=== PATIENT | male | born 1965 | race Caucasian/White ===

== ENCOUNTER 2022-06-22 20:19 | Emergency (ER) | payer OTHER, SELFPAY ==
[2022-06-22 20:40] VITALS: BP 109/79; PULSE 66; RESP 14; TEMP 36.4; O2SAT 95; BMI 45.6
--- NOTE | 2022-06-22 21:03 | CRLHL7_ITS ---
For Patients: As a result of the Century Cures Act, medical imaging exams and procedure reports are released immediately into your electronic medical record. You may view this report before your referring provider. If you have questions, please contact your health care provider. INDICATION: Fall, head injury TECHNIQUE: CT Head without i.v. contrast. Coronal and sagittal reformats were obtained. COMPARISON: None FINDINGS: CSF space: The ventricles are normal for age. Brain: No evidence of mass, acute infarction or hemorrhage is seen. No mass-effect or midline shift is seen. The brain parenchyma is otherwise normal in appearance with preservation of the france-white matter junction. Calvarium: The visualized paranasal sinuses are well aerated. The mastoid air cells are clear. The visualized orbits are grossly unremarkable. The calvarium is unremarkable in appearance with no fractures identified. IMPRESSION: 1. No evidence of acute infarction, intracranial hemorrhage, or mass-effect seen. Please note that all CT scans at this facility use dose modulation, iterative reconstruction, and/or weight-based dosing when appropriate to reduce radiation dose to as low as reasonably achievable. Dictated by: Broderick Groves MD @ 06/22/2022 21:25:40 (Electronically Signed)
--- NOTE | 2022-06-22 21:04 | CRLHL7_ITS ---
For Patients: As a result of the Cures Act, medical imaging exams and procedure reports are released immediately into your electronic medical record. You may view this report before your referring provider. If you have questions, please contact your health care provider. INDICATION: Fall, neck injury TECHNIQUE: CT cervical spine without i.v. contrast. Coronal and sagittal reformats were obtained. COMPARISON: None FINDINGS: Alignment: Unremarkable. Bone: No acute fractures or aggressive bone lesions are identified. On image 99, series 5 there is a linear lucency along the left transverse process. This may represent a nutrient vessel as it is only seen on 1 image. Disc: Moderate degenerative disc disease is present from C3-4 through C6-7. The facet joints are unremarkable. Soft tissue: The prevertebral soft tissues are unremarkable in appearance. The visualized lung apices and mediastinum are unremarkable. IMPRESSION: 1. No acute osseous injuries are identified. Dictated by Broderick Groves MD @ 06/22/2022 9:28:52 PM Please note that all CT scans at this facility use dose modulation, iterative reconstruction, and/or weight-based dosing when appropriate to reduce radiation dose to as low as reasonably achievable. Dictated by: Broderick Groves MD @ 06/22/2022 21:28:56 (Electronically Signed)
--- NOTE | 2022-06-22 21:11 | ED.HEATRA ---
HPI - Head Injury General Chief complaint: Head Injury/Pain Stated complaint: INR 4.0, fell and hit head & back yesterday Time Seen by Provider: 06/22/22 20:48 History of Present Illness HPI Narrative: Pt is a 56 year old gentleman who takes coumadin for a history of atrial fibrillation as well as DVT who fell approximately 36 hours ago on the ice. Pt fell backwards striking the back of his head on the cement. He was able to get up without difficulty. Pt has had no neurological symptoms but dose have mild pain in the occiput as well as the midline of the neck. Pt has no numbness, weakness, fevers, chills, vomiting or other headache. Pt had his INR done today and found that it was 4.0. Pt's coumadin was adjusted by his PCP but was asked to come in the have imaging of his head and neck due to the injury in the setting of anticoagulation. Related Data Home Medications Medication Instructions Recorded Confirmed atorvastatin 40 mg tablet mg 06/22/22 blood-glucose sensor ([employer] G6 06/22/22 06/22/22 Sensor device) blood-glucose transmitter ([employer] 06/22/22 06/22/22 G6 Transmitter device) empagliflozin 10 mg tablet mg 06/22/22 (Jardiance) escitalopram oxalate 20 mg tablet mg 06/22/22 gabapentin 100 mg capsule mg 06/22/22 glimepiride 4 mg tablet mg 06/22/22 insulin glargine 100 unit/mL (3 unit subcut 06/22/22 mL) subcutaneous pen (Lantus Solostar U-100 Insulin) lisinopril 20 mg tablet mg 06/22/22 metoprolol succinate 25 mg mg PO 06/22/22 tablet,extended release 24 hr pen needle, diabetic 32 gauge x 06/22/22 06/22/2206/13 (Unifine Pentips) pioglitazone 45 mg tablet mg 06/22/22 warfarin 5 mg tablet mg 06/22/22 Allergies Allergy/AdvReac Type Severity Reaction Status Date / Time No Known Drug Allergies Allergy Verified 06/22/22 20:48 Review of Systems Status of ROS: Reports: 10 or more systems reviewed and unremarkable except as noted in History and below [facility] Medical History (Updated 06/22/22 @ 21:44 by Nicholas Butler MD) Atrial fibrillation COVID-19 Diabetes DVT (deep venous thrombosis) Hyperlipidemia Hypertension [place] (obstructive sleep apnea) Social History Smoking Status: Never smoker Do you use any of these nicotine containing products: None Second hand tobacco smoke exposure: No How often do you have a drink containing alcohol: never AUDIT-C Alcohol total score: 0 Non-prescribed substance use: denies use Exam Narrative: Exam Narrative: EXAM GENERAL: Patient appears comfortable and well. No signs of trauma in head or neck. EYES: No scleral icterus. LYMPH: No supraclavicular or cervical lymphadenopathy. SKIN: Visible skin seen during exam normal or with benign process only. EXT: No dependent lower extremity pedal edema. HEART: Regular rate and rhythm with no murmurs, rubs, or gallops. LUNGS: Clear to auscultation bilaterally with no crackles or wheezes. ABD: Soft, non tender, non distended. PSYCH: Good eye contact, speech is not pressured. Const: Vital Signs, click to edit/add: Vital Signs - 24 hr 06/22/22 20:40 Temperature 97.5 F L Pulse Rate [Pulse Oximeter] 66 Respiratory Rate 14 Blood Pressure [Ri ght Upper Arm] 109/79 Pulse Oximetry 95 Oxygen Delivery Me thod Room Air Course Course Hospital Course: CT of the head and neck ordered. Pt appears stable with no abnormalities on exam. Reevaluation(s) Reevaluation #1: CT of head and cervical spine negative for acute injuries. Vital Signs Vital signs: Initial Vital Signs Temperature 97.5 F L 06/22/22 20:40 Temperature Source Temporal Artery Scan 06/22/22 20:40 Pulse Rate 66 06/22/22 20:40 Respiratory Rate 14 06/22/22 20:40 Blood Pressure 109/79 06/22/22 20:40 Blood Pressure Mean 89 06/22/22 20:40 Blood Pressure Position Sitting 06/22/22 20:40 Pulse Oximetry 95 06/22/22 20:40 Oxygen Delivery Method 06/22/22 20:40 Vital Signs Temperature 97.5 F L 06/22/22 20:40 Pulse Rate 66 06/22/22 20:40 Respiratory Rate 14 06/22/22 20:40 Blood Pressure 109/79 06/22/22 20:40 Pulse Oximetry 95 06/22/22 20:40 Oxygen Delivery Method 06/22/22 20:40 Temperature 97.5 F L 06/22/22 20:40 Pulse Rate 66 06/22/22 20:40 Respiratory Rate 14 06/22/22 20:40 Blood Pressure 109/79 06/22/22 20:40 Pulse Oximetry 95 06/22/22 20:40 Oxygen Delivery Method 06/22/22 20:40 MDM - Head Injury MDM Narrative Medical decision making narrative: Pt with a mildly elevated INR of 4.0 fell 36 hours ago striking his head and neck. Pt presents with no neurological symptoms and only mild local symptoms from the contusion. Pt has negative CT of the head and cervical spine. Pt' coumadin adjusted by PCP. Pt treated and released with symptomatic care and outpt follow up. Differential Diagnosis Differential diagnosis: Likely concussion without loss of consciousness, epidural hematoma, closed head injury, subarachnoid hematoma, postconcussion syndrome, subdural hematoma and concussion with loss of consciousness Discharge Plan Discharge Clinical Impression: Closed head injury Condition: Stable Instructions: Head Injury (ED) Additional Instructions: Tyelnol Ice Coumadin adjustment per PCP Continue current medications as prescribed Activity Level: No Restrictions Discharge Diet: Regular Prescriptions: No Action atorvastatin 40 mg tablet Label Comments: TAKE 1 TABLET (40 MG) BY MOUTH ONCE DAILY. FOR CHOLESTEROL (DME) Dexcom G6 Sensor Device MISCELLANEOUS Label Comments: TO BE USED TO READ BLOOD SUGARS, FOLLOW UTILITY SPECIALIST DIRECTIONS. (DME) Dexcom G6 Transmitter Device MISCELLANEOUS Label Comments: TO BE USED TO READ BLOOD SUGARS, FOLLOW UTILITY SPECIALIST DIRECTIONS. Jardiance 10 mg tablet Label Comments: TAKE 1 TABLET (10 MG) BY MOUTH ONCE DAILY. FOR DIABETES. lisinopril 20 mg tablet Label Comments: TAKE ONE TABLET BY MOUTH DAILY pioglitazone 45 mg tablet Label Comments: TAKE ONE TABLET BY MOUTH ONCE DAILY FOR DIABETES glimepiride 4 mg tablet Label Comments: TAKE TWO TABLETS BY MOUTH DAILY WITH A MEAL FOR DIABETES warfarin 5 mg tablet Label Comments: TAKE BY MOUTH 7.5 MG (5 MG X 1.5) EVERY DAY OR DIRECTED gabapentin 100 mg capsule Label Comments: TAKE THREE CAPSULES BY MOUTH DAILY AT NIGHT metoprolol succinate 25 mg tablet extended release 24 hr PO Label Comments: TAKE ONE TABLET BY MOUTH DAILY FOR BLOOD PRESSURE escitalopram oxalate 20 mg tablet Label Comments: TAKE ONE TABLET BY MOUTH EVERY MORNING insulin glargine [Lantus Solostar U-100 Insulin] 100 unit/mL (3 mL) insulin pen SUBCUT Label Comments: INJECT 10 UNITS SUBCUTANEOUS BEFORE BEDTIME. (DME) pen needle, diabetic [Unifine Pentips] 32 gauge x 1/4 needle MISCELLANEOUS Label Comments: FOR ADMINISTERING INSULIN AT HOME. Stand Alone Forms: [facility] Inst[facility]
== END 2022-06-22 22:00 | disposition home or self-care (01) ==
PROVIDERS: Emergency Provider Internal Medicine
DX: S09.90XA Unspecified injury of head, initial encounter (principal); W00.9XXA Unspecified fall due to ice and snow, initial encounter
CPT/HCPCS: 70450; 72125; 99283

== ENCOUNTER 2024-12-16 20:18 | Emergency (ER) | payer OTHER, SELFPAY ==
--- OUTSIDE RECORDS SUMMARY | 2024-10-21 04:56 | XMS_ITS | Continuity of Care Document ---
Author Organization [facility] Address [address] [address] [place] [address] Phone Care Team Providers Care Cottrell Operator Name Role Phone Dawson Sawyer MD, Robbi Fink e Advance Directives Directive Yes / No Effective Date File Name No Information Encounters Encounter Description Practice Location Reason(s) For Visit Diagnoses Date Provider Providers Copied on Encounter [facility], [address] [address], [place], [place], [id number], [place] tel:[phone] [facility] No Information Dawson Culp. [address] [facility], [facility] [address], [place], [place], [id number], [place]. tel:[phone] Family History Family Member Type Diagnosis Age At Onset No Information Payers Payer name Insurance type Covered green party ID Authoriza tion(s) No Information Social History Type Description Quantity Date Captured Comments Sex Male Smoking Status No Information Chief Complaint And Reason For Visit No Information Reason For Referral Reason For Referral No Information History Of Present Illness Encounter Date Complaint History Of Prese nt Illness No Information Functional Status Date Functional Assessmen t No Information Instructions Date Instruction Additional Infor mation No Information Assessments Type Assessment Date No Information Patient Care Teams Name Effective Dates (start - stop) Status Members No Information
--- OUTSIDE RECORDS SUMMARY | 2024-10-21 04:56 | XMS_ITS | Continuity of Care Document ---
Author Organization [facility] Address [address] [address] [place] [address] Phone Care Team Providers Care Computerized Machine Fabric Cutter Name Role Phone Dawson Sawyer MD, Robbi Fink e Advance Directives Directive Yes / No Effective Date File Name No Information Encounters Encounter Description Practice Location Reason(s) For Visit Diagnoses Date Provider Providers Copied on Encounter [facility], [address] [address], [place], [place], [id number], [place] tel:[phone] [facility] No Information Dawson Culp. [address] [facility], [facility] [address], [place], [place], [id number], [place]. tel:[phone] Family History Family Member Type Diagnosis Age At Onset No Information Payers Payer name Insurance type Covered constitution party ID Authoriza tion(s) No Information Social [...]
--- OUTSIDE RECORDS SUMMARY | 2024-11-28 11:20 | XMS_ITS | Encounter Summary ---
Author Organization [facility] Address [address], [place] [address] Care Team Providers Care Blending Operator Name Role Phone Unassigned, Provider Primary Care Provider Unava ilable Reason for Referral * Procedure/Equipment (Routine) - Incomplete Specialty Diagnoses / Procedures Referred By Contac t Referred To Contact Diagnoses Hematoma of right lower leg Procedures XR Tibia Fibula Rt 2 Views Robbi Araujo PA-C [address] [place] [address] Phone: tel: fax: Referral ID Status Reason Start Date Expiration Date V isits Requested Visits Authorized [id number] Incomplete 11/28/2024 02/27/2026 1 1 Reason for Visit * Reason Comments INJURY, LEG Encounter Details Date Type Department Care Team ([facility] Contact Info) Description 11/28/2024 11:20 AM CDT Office Visit [place] [facility] [address] [facility] [address] [place] [phone] Robbi Araujo PA-C [address] [place] [address] Hematoma of right lower leg Social History Tobacco Use Types Packs/Day Years Used Date Smoking Tobacco: Never Smokeless Tobacco: Never Alcohol Use Standard Drinks/Week Comments Yes 0 (1 standard drink = 0.6 oz pur e alcohol) Sex and Gender Information Value Date Recorded Sex Assigned at Not on file Legal Sex Male 4:10 AM CDT Gender Identity Not on file Sexual Orientation Not on file documented as of this encounter Last Filed Vital Signs Vital Sign Reading Time Taken Comments Blood Pressure 130/91 11/28/2024 11:21 AM CDT Pulse 73 11/28/2024 11:21 AM CDT Temperature 36.8 C (98.2 F) 11/28/2024 11:21 AM CDT Respiratory Rate 16 11/28/2024 11:21 AM CDT Oxygen Saturation 98% 11/28/2024 11:21 AM CDT Inhaled Oxygen Concentration - - Weight - - Height - - Body Mass Index - - documented in this encounter Patient Instructions * Attachments The following attachments cannot be sent through Care Everywhere. * Hematoma (Slovak) documented in this encounter Progress Notes * Robbi Araujo PA-C - 11/28/2024 11:20 AM CDT Hemant Niño is a 59 y.o.male presents to the Urgent Care for INJURY, LEG . R hare injury after hitting leg on battery box of his truck. Noted bruising and swelling on Saturday. Now toes are bruised too. He denies pain to foot, only pain in the hare. Clinic Visit SUBJECTIVE: Hemant Niño is a 59 y.o.male in to urgent care for concern of some bruising, swelling and blistering to his right lower extremity. 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 He states that 3 days ago he had dropped a battery box that landed on the front of his right hare. This caused a large bruise to the hare. Since then the bruise has gotten bigger and now he is noticing bruising around his foot. He has also developed a blister to the front of his hare where the injury occurred. Area is quite tender to touch. He does not have pain with weight-bearing and just has very minimal discomfort with walking. He was just concerned with the worsening bruising and swelling and wanted to make sure there was not evidence of infection. Of note, patient is a type 2 diabetic. He also is on warfarin. INR is has been stable. Patient receives his usual medical care through another facility. Hedenies any fever or chills. He denies any numbness, paresthesias or weakness in the extremity. Past Medical History: There is no problem list on file for this patient. Adverse Drug Reactions: Patient has no known allergies. Medications: Dexcom G6 Sensor, Dexcom G6 Transmitter, atorvastatin, buPROPion, canagliflozin, empagliflozin, escitalopram, gabapentin, glimepiride, insulin glargine, insulin pen needle 32G X 6 MM, lisinopril, metoprolol succinate, naltrexone, pioglitazone, pramipexole, traZODone, and warfarin Family History: History reviewed. No pertinent family history. Social History: Social History Tobacco Use Smoking status: Never Smokeless tobacco: Never Vaping Use Vaping status: Never Used Substance Use Topics Alcohol use: Yes Drug use: Never Review of Systems: All systems were reviewed and found to be negative except as noted above. OBJECTIVE: Vital Signs: BP (!) 130/91 (BP Location: Right Arm, BP Cuff Size: Regular - Long) Pulse 73 Temp36.8 ??C (98.2 ??F) (Oral) Resp 16 SpO2 98% General: NAD, Alert and oriented. Extremities: Exam of the right lower extremity reveals a large area of ecchymosis to the anterior to lateral aspect of the right hare. There is about a 3 cm vesicle to the anterolateral aspect of themid hare that is intact and filled with serosanguineous fluid. No open wounds noted. The area of ecchymosis is quite large and measures approximately three by 5 in in diameter. There is ecchymosis extending down along the base of the foot as well. Patient has full range of motion in the foot with CMS intact and good pedal pulses. He does have somewhat significant tenderness with palpation directly over the wound site but does not have otherwise diffuse tenderness to the rest of the leg. Labs: No results found for any visits on 11/28/24. Imaging: Initial x-ray images are interpreted independently by myself as no fractures or dislocations. Some soft tissue swelling noted. XR Tibia Fibula Rt 2 Views Result Date: 11/28/2024 EXAM: XR TIBIA FIBULA RT 2 VIEWS INDICATION: fall, trauma to right hare COMPARISON: None. FINDINGS:No bone or joint abnormality identified. Small corticated bony fragment adjacent to the medial malleolar tip, accessory ossification center versus chronic fracture fragment. Small superior patellar p ole enthesophytes. Calcaneal enthesophytes. Soft tissue edema/swelling within the calf. Signed by: Yunier Redd 11/28/2024 11:53 AM ASSESSMENT: 1. Hematoma of right lower leg MDM/PLAN: Orders Placed This Encounter XR Tibia Fibula Rt 2 Views Patient again in with injury to his right hare. He has a large area of swelling and ecchymosis withsome blistering. I think this is likely just a large hematoma but we did want to rule out possible fibular fracture. Also wanted to consider compartment syndrome and infection. Patient has good pedalpulses and there was no evidence of infection. He does not have tenderness beyond what I would suspe ct with this injury. Risk of compartment syndrome is quite low. Patient was generally reassured. This will just need to continue to heal. Did discuss a compression wrap of some kind just to help withsome of the swelling and I did actually give him a large Boris wrap to use. Keep the blister intact if possible. Follow up for any worsening signs or symptoms.. documented in this encounter Nursing Notes * Dayna Wnyne RN - 11/28/2024 11:20 AM CDT Hemant Niño is a 59 y.o.male presents to the Urgent Care for INJURY, LEG . R hare injury after hitting leg on battery box of his truck. Noted bruising and swelling on Saturday. Now toes are bruised too. He denies pain to foot, only pain in the hare. documented in this encounter Plan of Treatment Not on file documented as of this encounter Results * XR Tibia Fibula Rt 2 Views (11/28/2024 11:47 AM CDT) Anatomical Region Laterality Modality Lower Extremity, Knee, Leg, Foot & Ankle Digital Radiography Narrative 11/28/2024 11:53 AM CDT EXAM: XR TIBIA FIBULA RT 2 VIEWS INDICATION: fall, trauma to right hare COMPARISON: None. FINDINGS: No bone or joint abnormality identified. Small corticated bony fragment adjacent to the medial malleolar tip, accessory ossification center versus chronic fracture fragment. Small superior patellar pole enthesophytes. Calcaneal enthesophytes. Soft tissue edema/swelling within the calf. Signed by: Yunier Redd 11/28/2024 11:53 AM Procedure Note Yunier Redd MD - 11/28/2024 EXAM: XR TIBIA FIBULA RT 2 VIEWS INDICATION: fall, trauma to right hare COMPARISON: None. FINDINGS: No bone or joint abnormality identified. Small corticated bony fragmentadjacent to the medial malleolar tip, accessory ossification center versus chronic fracture fragment. Small superiorpatellar pole enthesophytes. Calcaneal enthesophytes. Soft tissue edema/swelling within the calf. Signed by: Yunier Redd 11/28/2024 11:53 AM Robbi Araujo PA-C RAD [facility] Final Result documented in this encounter Visit Diagnoses Diagnosis Hematoma of right lower leg Hematoma of right lower leg documented in this encounter Care Teams Blending Operator Relationship Specialty Start Date End Date Unassigned, Provider [address] [place] [address] PCP - General 08/11/00 documented as of this encounter
--- OUTSIDE RECORDS SUMMARY | 2024-11-28 11:40 | XMS_ITS | Encounter Summary ---
Author Organization [facility] Address [address], [place] [address] Care Team Providers Care Rehab Services Aide Name Role Phone Unassigned, Provider Primary Care Provider Unava ilable Reason for Visit * Procedure/Equipment (Routine) - Incomplete Specialty Diagnoses / Procedures Referred By Sara t Referred To Contact Diagnoses Hematoma of right lower leg Procedures XR Tibia Fibula Rt 2 Views Robbi Araujo PA-C [address] [place] [address] Phone: tel: fax: Referral ID Status Reason Start Date Expiration Date V isits Requested Visits Authorized [id number] Incomplete 11/28/2024 02/27/2026 1 1 Encounter Details Date Type Department Care Team (Latest Contact Info) Description 11/28/2024 11:40 AM CDT Ancillary Procedure [facility] [address] [place] [address] Robbi Araujo PA-C [address] [place] [address] Hematoma of right lower leg [...] on file documented as of this encounter Plan of Treatment Not on file documented as of this encounter Procedures Procedure Name Priority Date/Time Associated Diagnosis Comments XR TIBIA FIBULA RT 2 VIEWS STAT 11/28/2024 11:47 AM CDT Hematoma of right lower leg documented in this encounter Results * XR Tibia Fibula [...] Diagnoses Diagnosis Hematoma of right lower leg documented in this encounter Care Teams Rehab Services Aide Relationship Specialty Start Date End Date Unassigned, Provider [address] [place] [address] PCP - General 08/11/00 documented as of this encounter
--- OUTSIDE RECORDS SUMMARY | 2024-12-16 20:20 | XMS_ITS | Data Portability ---
Author Organization [place] - [facility], [facility] Address [address] [place] [address] [address] [place] [address] Assessment Encounter Date Assessment Date Assessment LastModified by Organization Details LastModified Time 12/06/2021 12/06/2021 The patient is interested in post-vasectomy fertility options. We discussed in detail the options available to them. We discussed vasectomy reversal, including microsurgical vasovasostomy, vasoepididymosto my and the indications for each. We discussed transient patency and antisperm antibodies. Expected patency (>90%) rate discussed. We reviewed the relative advantages of IVF versus vasectomy reversal. I described PESA and TESE. I reviewed in detail the risks, benefits, and alternatives to vasectomy reversal and sperm acquisition procedures as well as the options for timing and costs. We also discussed donor sperm IUI and adoption. I explained that he is at VERY high risk for complications due to his obesity, DM and DVT's requiring anticoagulation. Discussed the contraceptive nature of testosterone. He would need to come off all testosterone for at least 6 months before any intervention. Discussed the increased genetic risks in the offspring of older fathers. They are also considering donor IUI. [email or web address] Not available 12/06/2021 14:54:56 Plan of Treatment Reminders Order Date Submit Date Provider Last Modified By Organization Details Last Modified Time Details Appointments None record ed. Lab None record ed. Referral None record ed. Procedures None record ed. Surgeries None record ed. Imaging None record ed. Medication Orders None record ed. Patient TargetsNo targets recorded. Patient Instructions Encounter Date Encounter Id Patient Instructions Last Modified By Organization Details Last Modified Time 12/06/2021 [id number] Vasectomy Revers al How is a vasectomy reversal performed? A vasectomy reversal is performed using general anesthesia or sedation and local anesthesia. This surgery is done on an outpatient basis meaning that men generally return home within a few hours of the procedure. It begins with an examination of the two ends of the previously cut vas deferens through a tiny incision in the scrotum (about inch). The vas deferens on the testicular side is opened and the fluid is examined for the presence or absence of sperm. If sperm are identified or there is a large amount of watery fluid, the two ends of the vas deferens are then sewn together a procedure known as a vasovasostomy. If there are no sperm in the fluid and the fluid is pasty, a secondary epididymal blockage is suspected. If that is the case, the vas deferens is sewn to the epididymis a procedure known as an epididymovasostomy or vasoepididymostomy. How Is a Vasovasostomy or Epididymovasostomy Performed? Most male infertility specialists join the two ends of the vas deferens in multiple layers ( multilayered anastomosis ) or with a modified one-layer technique. The inside diameter of the vas deferens is only of a millimeter (0.02 inches). For comparison, a human hair is 1/10 of a millimeter. Male infertility specialists use very fine suture material which is 1/3rd to 1/5th the diameter of a human hair and almost impossible to see without a microscope. To perform an epididymovasostomy, an epididymal tubule containing sperm is identified and attached to the vas deferens, reestablishing continuity of the genital tract. Vasectomy Reversal Results There are two measures of success following a vasectomy reversal: 1. The return of sperm to the ejaculate ( patency ) 2. Establishment of a Historical Vasectomy Reversal Study The landmark study of vasectomy reversals is the vasovasostomy study group report published in 1990. It reported vasectomy reversal results for more than 1,400 men. Overall, 86% of men undergoing first time vasectomy reversals had sperm return to the ejaculate. Interestingly, the patency rate was related to the length of time since the vasectomy: patency rates were 97% if the time since the vasectomy was less than 3 years but 71% if more than 14 years. rates were also dependent upon the length of time since the vasectomy. The overall rate was 52% but if the interval since vasectomy was less than 3 years the rate was 76% and if the interval was greater than 14 years the rate was 30%. Current State of Vasectomy Reversal Much has changed since the report of the vasovasostomy study group was published. Microsurgery has undergone numerous refinements. The technique of vasoepididymostomy has undergone dramatic changes with corresponding improvements in results. With these changes have come improved patency and rates. Most contemporary series of vasovasostomies performed by fellowship trained surgeons report patency rates exceeding 90% and rates of 40-55%. More recently, studies have shown that even with long periods of time since vasectomy, the patency and results are excellent after microsurgical vasectomy reversal. What Should I Watch for After the Procedure? You will be seen about 2 weeks after the procedure to ensure that your recovery is going well. You will then come in to examine a semen specimen 6 weeks after the procedure and then every 3 months until or stabilization of semen quality. In most cases, the semen quality improves over the first 6-12 months. Approximately 3% of men who have a technically successful reversal (motile sperm seen in the ejaculate after the reversal) will scar in the area where the two ends of the vas deferens were put together and eventually no longer have sperm in their ejaculate. An additional 3-4% may be infertile after a vasectomy reversal due to the presence of antibodies that their immune system makes against their sperm. Female Partners and Vasectomy Reversal Many factors influence rate, the most important of which is the age of the female. When women are younger than 30 years old, two thirds of couples achieve a even with more than 15 years between vasectomy and vasectomy reversal. If men have the same partner before and after vasectomy, 86% of couples achieve pregnancies. For couples in which the woman is 35-39 years old, recent data suggests and live rates around 45%. This data shows how important female fertility issues are in predicting the ultimate result. Not available 12/06/2021 12:29:28 Reason for Referral None Reported. Procedures Surgical History Date Name Laterality Status Provider Name and Address Organization Details Recorded Time Past Data Reviewed completed Duc Munroe MD [address], [place], [address], [facility] 12/06/2021 14:51:59 Imaging Results None recorded. Procedure Notes None recorded. Medical Equipment None Reported. Allergies No known drug allergies Medications Name Sig Start Date Stop Date Status Note LastModified by Organization Details LastModified Time Jardiance 10 mg tablet 10mg 7 DAYS/d ay active Not Available Not Available No t Available Vitals Date Recorded Body mass index (BMI) Body height Body weight Provider Name and Address Organization Details Last Updated DateTime 12/06/2021 42.6 kg/m2 172.72 cm 518691.014 026223 g Not Available Health Note 12/06/2021 12:28:23 Social History Question Answer Notes LastModified by [employer] Details LastModified Time Tobacco Smoking Status Never Smoker Not Available Health Note 12/04/2021 14:04:16 What Is Your Level Of Caffeine Consumption? None [email or web address] Information not available 12/04/2021 How Much Tobacco Do You Chew? None [email or web address] Information not available 12/04/2021 What Was The Date Of Your Most Recent Tobacco Screening? 12/06/2021 [email or web address] Information not available 12/04/2021 What Is Your Relationship Status? Single [email or web address] Information not available 12/04/2021 Has Tobacco Cessation Counseling Been Provided? No Information not available 12/06/2021 Sex: Unknown Functional Status Question Answer Note LastModified by JANZZ Details LastModified Time Do you use any illicit or recreational drugs? No [email or web address] Information not available 12/04/2021 Do you or have you ever used any other forms of tobacco or nicotine? No Information not available 12/06/2021 What is your level of alcohol consumption? Occasional [email or web address] Information not available 12/04/2021 Do you or have you ever used smokeless tobacco? Never used smokeless tobacco [email or web address] Information not available 12/04/2021 Do you or have you ever used e-cigarettes or vape? Never used electronic cigarettes [email or web address] Information not available 12/04/2021 Mental Status None recorded. Family History Relationship Description Onset Age of this Age Resolved Age Notes LastModified by Organization Details LastModified Time Unspecified Relation Family history unknown [email or web address] Not available 2021 14:04:15 Medical History Condition Response High Blood Pressure Y Kidney Stones N Lung Disease N Depression N GERD/Acid Reflux N Sexually Transmitted Infection N Diabetes Y Bleeding Disorder N Cancer N High Cholesterol N Heart Disease N Immunizations Vaccine Type Date Status Note Provider Nam e and Address Organization Details Recorded Time influenza, unspecified formulation 2 completed Karla Ray null, [facility] 12/06/2021 12:29:40 Influenza, split virus, quadrivalent, PF 1 completed Karla Ray null, [facility] 12/06/2021 12:29:40 Influenza, split virus, quadrivalent, PF 6 completed Karla Ray null, [facility] 12/06/2021 12:29:40 Influenza, split virus, quadrivalent, PF 9 completed Karla Ray null, [facility] 12/06/2021 12:29:40 Hep B, adult 5 completed Karla Ray null, [facility] 12/06/2021 12:29:40 Hep B, adult 4 completed Karla Ray null, [facility] 12/06/2021 12:29:40 Influenza, split virus, trivalent, preservative 2 completed Karla Ray null, [facility] 12/06/2021 12:29:40 Influenza, split virus, quadrivalent, PF 0 completed Karla Ray null, [facility] 12/06/2021 12:29:41 Influenza, split virus, quadrivalent, PF 8 completed Karla Ray null, [facility] 12/06/2021 12:29:41 Influenza, split virus, quadrivalent, PF 5 completed Karla Ray null, [facility] 12/06/2021 12:29:41 zoster recombinant 9 completed Karla Ray null, [facility] 12/06/2021 12:29:41 Td (adult), 2 Lf tetanus toxoid, preservative free, adsorbed 9 completed Karla Ray null, [facility] 12/06/2021 12:29:41 Influenza, split virus, trivalent, preservative 3 completed Karla Ray null, [facility] 12/06/2021 12:29:41 pneumococcal polysaccharide PPV23 9 completed Karla Bell null, [facility] 12/06/2021 12:29:41 Tdap 9 completed Karla Ray null, [facility] 12/06/2021 12:29:41 zoster recombinant 9 completed Karla Ray null, [facility] 12/06/2021 12:29:41 Influenza, split virus, quadrivalent, PF 4 completed Karla Ray null, [facility] 12/06/2021 12:29:41 Influenza, split virus, quadrivalent, PF 7 completed Karla Ray null, [facility] 12/06/2021 12:29:41 Hep B, adult 3 completed Karla Ray null, [facility] 12/06/2021 12:29:41 Influenza, split virus, quadrivalent, PF 6 completed Karla Ray null, [facility] 12/06/2021 12:29:41 Past Encounters Encounter ID Performer Location Encounter Start Date Encounter Closed Date Diagnosis/Indication Diagnosis SNOMED-CT Code Diagnosis ICD10 Code Diagnosis Note [id number] Duc Munroe MD [facility] [address] [address] 12/06/2021 12:28:17 12/06/2021 14:56:36 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 Hypogonadism 69008734 E2 9.1 Health Concerns Section Related Observation LastModified by Organization Detai ls LastModified Time None Recorded Concern Status LastModified by Organization Details LastModified Time None Recorded Advance Directives Directive None Recorded Payers Insurance Date Sequence Insurance Name Policy Number Policy Cristina Covered Member ID Cristina Member ID Guarantor Name 12/08/2021 1 [email or web address] OPEN ACCESS CHOICE ([employer]) [id number] Hemant Niño [id number] Hemant Niño Notes Date Note Type Note Provider Name and Address Organization Details Recorded Time 12/06/2021 text/html Chief complaint:reason listed below Uses Coumadin for a DVT. Has hypogonadism, on testosterone pellets. Has had 3 implants (Jan 2021, , September 2021). Other Urological Concern:Other Urological Concern:VASECTOMY REVERSALBegan:4 Weeks agoFrequency:Daily Worse with:NOTHINGBetter with:ITS FINESeverity:Mild Progression: Staying the same, Staying the same overall Date of Vasectomy: 10 years Complications after the vasectomy: None Number of children: 1 Prior pregnancies with partner: No Partner's name: Aparna Silva Partner's age: 39 Partner's menstrual cycles are regular. Partner has had pregnancies with other partners. Considering a vasectomy reversal for: 6-12 months. Duc Munroe MD [address], [place], [address], [facility] 12/06/2021 14:55:15
--- OUTSIDE RECORDS SUMMARY | 2024-12-16 20:20 | XMS_ITS | Clinical Summary ---
Author Organization [facility] Address [address] [place] [address] Care Team Providers Care Business Management Intern Name Role Phone Unassigned, Provider Primary Care Provider Unava ilable Source Comments You are receiving this document as you are listed as the primary care provider,follow-up provider, or the patient has been referred to you for consultation.This is in compliance with the Medicare and[facility] EHR Incentive Program,which states Providers who transition their patient to another setting of careor provider of care or refers their patient to another provider of care shouldprovide summary care record for each transition of care or referral. [facility] Allergies No known active allergies Medications atorvastatin (LIPITOR) 40 MG tablet Take 1 Tablet (40 mg) by mouth daily. 04/07/20 20 Active INVOKANA 100 MG tablet Take 1 Tablet (100 mg) by mouth daily. 06/13/19 Active escitalopram (LEXAPRO) 10 MG tablet Take 1 Tablet (10 mg) by mouth daily. 07/04/19 21 Active glimepiride (AMARYL) 4 MG tablet Take 1 Tablet (4 mg) by mouth daily. 07/01/19 21 Active lisinopril (ZESTRIL) 20 MG tablet Take 1 Tablet (20 mg) by mouth daily. 07/04/19 21 Active metoprolol succinate (TOPROL XL) 25 MG 24 hour release tablet Take 1 Tablet (25 mg) by mouth daily. 07/01/19 21 Active pioglitazone (ACTOS) 45 MG tablet Take 1 Tablet (45 mg) by mouth daily. 06/11/19 21 Active pramipexole (MIRAPEX) 0.125 MG tablet Take 1 Tablet (0.125 mg) by mouth daily. 04/07/20 Active warfarin (COUMADIN) 5 MG tablet Take 1 Tablet (5 mg) by mouth daily. 06/06/20 Active buPROPion (WELLBUTRIN XL) 150 MG 24 hour release tablet Take 1 Tablet (150 mg) by mouth daily. 11/17/19 25 Active JARDIANCE 25 MG tablet Take 1 Tablet (25 mg) by mouth daily. 09/06/19 25 Active gabapentin (NEURONTIN) 300 MG capsule Take 1 Capsule (300 mg) by mouth daily at bedtime. 11/06/19 25 Active LANTUS SOLOSTAR 100 UNIT/ML pen Inject 18 Units subcutaneously two times a day. 11/20/19 25 Active GNP ULTICARE PEN NEEDLES 32G X 6 MM USE TO FOR ADMINISTERING INSULIN AT HOME ONE DAILY DIRECTED 10/31/19 25 Active naltrexone (REVIA) 50 MG tablet Take 1 Tablet (50 mg) by mouth daily. 10/15/19 25 Active traZODone (DESYREL) 50 MG tablet Take 1 Tablet (50 mg) by mouth at bedtime as needed. 09/10/19 25 Active Continuous Glucose Sensor (DEXCOM G6 SENSOR) SMARTSIG:device Topical As Directed 11/20/19 25 Active Continuous Glucose Transmitter (DEXCOM G6 TRANSMITTER) SMARTSIG:Twice a Week 10/06/19 25 Active Hospital, Clinic, or Other Facility Administered Medication Ordered Dose Route Frequency Start Date End Date Status meclizine (ANTIVERT) tablet 25 mgIndications:Dizziness 25 mg OR TID PRN 02/22/2022 Active Active Problems No known active problems Encounters Date Type Department Care Team Description 11/28/2024 11:40 AM CDT Ancillary Procedure [facility] [address] [place] [address] Robbi Araujo PA-C Hematoma of right lower leg 11/28/2024 11:20 AM CDT Office Visit [facility] [address] [id number] [place] [phone] Robbi Araujo PA-C Hematoma of right lower leg from Last 3 Months Social History Tobacco Use Types Packs/Day Years Used Date Smoking Tobacco: Never Smokeless Tobacco: Never Alcohol Use Standard Drinks/Week Comments Yes 0 (1 standard drink = 0.6 oz pur e alcohol) Sex and Gender Information Value Date Recorded Sex Assigned at Not on file Legal Sex Male 4:10 AM CDT Gender Identity Not on file Sexual Orientation Not on file Last Filed Vital Signs Vital Sign Reading Time Taken Comments Blood Pressure 130/91 11/28/2024 11:21 AM CDT Pulse 73 11/28/2024 11:21 AM CDT Temperature 36.8 C (98.2 F) 11/28/2024 11:21 AM CDT Respiratory Rate 16 11/28/2024 11:21 AM CDT Oxygen Saturation 98% 11/28/2024 11:21 AM CDT Inhaled Oxygen Concentration - - Weight - - Height - - Body Mass Index - - Plan of Treatment Health Maintenance Due Date Last Done Comments Colon Cancer Screening Plan Due 1965 Hep C Screening (Preventive Services) 1965 PSA Screening Discussion 1965 HIV Screening (Preventive Services) 1979 Adult Preventive Visit 11/19/1981 Cholesterol 11/19/1998 DTaP/Tdap/Td Vaccine (2 - Tdap) 09/29/2018 09/29/2008 COVID-19 Vaccine ( season) 2024 Influenza Vaccine (#1) 2025 2, 09/05/2021, 06/08/2021, Additional history exists RSV Vaccine (1 - 1-dose 75+ series) 11/19/2038 Zoster/Shingles Vaccine Completed 04/24/2019, 01/19 Pneumococcal Vaccine 50+ Yrs Completed 02/21/2022, 01/19/2019 HepA Vaccine Aged Out No longer eligi ble based on patient's age to complete this topic HepB Vaccine Aged Out No longer eligi ble based on patient's age to complete this topic Hib Vaccine Aged Out No longer eligi ble based on patient's age to complete this topic IPV (Polio) Vaccine Aged Out No longe r eligible based on patient's age to complete this topic MCV4 Vaccine Aged Out No longer eligi ble based on patient's age to complete this topic Meningococcal B Vaccine Aged Out No l onger eligible based on patient's age to complete this topic Procedures Procedure Name Priority Date/Time Associated Diagnosis Comments XR TIBIA FIBULA RT 2 VIEWS STAT 11/28/2024 11:47 AM CDT Hematoma of right lower leg from Last 3 Months Results * XR Tibia Fibula Rt 2 [...] Robbi Araujo PA-C RAD GD Final Result from Last 3 Months Insurance [employer] Care Teams Business Management Intern Relationship Specialty Start Date End Date Unassigned, Provider [address] [place] [address] PCP - General 08/11/00
--- OUTSIDE RECORDS SUMMARY | 2024-12-16 20:20 | XMS_ITS | Clinical Summary ---
Author Organization [facility] Address [address] [place] [id number] Care Team Providers Care Development Architect Name Role Phone Raymond Handy DO Unavailable [phone] Bernabe Mathew MD Primary Care Provider Allergies Active Allergy Reactions Criticality Noted Date Comments Aspirin Other - Describe In Comment Field 04/21/2010 Using coumadin at this time Medications ACCU-CHEK ALPA PLUS TEST STRP stripIndications: Type 2 diabetes mellitus with chronic kidney disease (HC) USE TO TEST TWICE DAILY 200 Strip 3 07/03/19 20 Active Dexcom G6 Metal Ceiling Hanger for continuous blood glucose monitor (CGM)Indications: Type 2 diabetes mellitus with stage 3a chronic kidney disease, without long-term current use of insulin (HC) To be used to read blood sugars follow top stitcher directions. 1 Each 05/29/20 23 Active glimepiride (AMARYL) 4 mg tabletIndications :Type 2 diabetes mellitus with stage 2 chronic kidney disease, with long-term current use of insulin (HC) TAKE TWO TABLETS BY MOUTH DAILY WITH A MEAL FOR DIABETES 180 Tablet 3 01/06/20 24 Active atorvastatin (LIPITOR) 40 mg tabletIndications :Hyperlipidemia associated with type 2 diabetes mellitus (HC) Take 1 Tablet (40 mg) by mouth once daily. For cholesterol 90 Tablet 3 01/06/20 24 Active pioglitazone (ACTOS) 45 mg tabletIndications :Type 2 diabetes mellitus with stage 2 chronic kidney disease, with long-term current use of insulin (HC) TAKE ONE TABLET BY MOUTH ONCE DAILY FOR DIABETES 90 Tablet 3 01/06/20 24 Active lisinopriL (PRINIVIL; ZESTRIL) 20 mg tabletIndications :Essential hypertension TAKE ONE TABLET BY MOUTH DAILY 90 Tablet 3 02/11/20 24 Active empagliflozin (Jardiance) 25 mg tabletIndications :Type 2 diabetes mellitus with stage 2 chronic kidney disease, with long-term current use of insulin (HC) Take 1 Tablet (25 mg) by mouth once daily. 90 Tablet 3 05/11/20 24 Active UltiCare Pen Needle 32 gauge x 1/4 (disposable insulin pen needle)Indication s:Type 2 diabetes mellitus with stage 3a chronic kidney disease, without long-term current use of insulin (HC) FOR ADMINISTERING INSULIN AT HOME. 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 90 Tablet 3 07/23/19 25 Active gabapentin (NEURONTIN) 300 mg capsuleIndication s:Restless leg syndrome,Insomnia , idiopathic Take 1 Capsule (300 mg) by mouth at bedtime. 90 Capsule 3 07/23/19 25 Active metoprolol succinate (TOPROL XL) 25 mg Sustained-Release tabletIndications :Essential hypertension Take 1 Tablet (25 mg) by mouth once daily. 90 Tablet 3 07/23/19 25 Active traZODone (DESYREL) 50 mg tabletIndications :Insomnia, idiopathic Take 1 Tablet (50 mg) by mouth at bedtime if needed for Sleep. 90 Tablet 3 07/23/19 25 Active buPROPion (WELLBUTRIN XL) 150 mg Extended-Release tabletIndications :Morbid obesity (HC) Take 1 Tablet (150 mg) by mouth once daily. 90 Tablet 3 08/18/19 25 Active Dexcom G6 Sensor for continuous blood glucose monitor (CGM)Indications: Type 2 diabetes mellitus with stage 2 chronic kidney disease, with long-term current use of insulin (HC) TO BE USED TO READ BLOOD SUGARS, FOLLOW CERTIFIED TECHNICIAN DIRECTIONS. 3 Each 3 09/02/19 25 Active Lantus Solostar U-100 Insulin 100 unit/mL (3 mL) penIndications:Ty pe 2 diabetes mellitus with stage 2 chronic kidney disease, with long-term current use of insulin (HC) INJECT 18 UNITS TWICE DAILY ABOUT 12 HOURS APART 60 mL 3 09/12/19 Active Dexcom G6 Transmitter for continuous blood glucose monitor (CGM)Indications: Type 2 diabetes mellitus with stage 3a chronic kidney disease, without long-term current use of insulin (HC) TO BE USED TO READ BLOOD SUGARS, FOLLOW CERTIFIED TECHNICIAN DIRECTIONS. 1 Each 3 10/06/19 Active naltrexone 50 mg tabletIndications :Morbid obesity (HC) Take 1 Tablet (50 mg) by mouth once daily. 90 Tablet 3 10/06/19 Active Active Problems Problem Noted Date Diagnosed Date Obstructive sleep apnea of adult 02/20/2024 Claustrophobia 02/20/2024 Intolerance of continuous po sitive airway pressure (CPAP) ventilation 02/20/2024 S/P UPPP (uvulopalatopharyngoplasty) 02/20/2024 BMI 50.0-59.9, adult 02/20/2024 Diarrhea 01/16/2022 Hyperopia of both eyes with astigmatism and pres byopia 11/22/2016 skilled nursing current use of anticoagulant therapy 0 12/13/2014 Routine adult health maintenance 05/11/2014 Overview (05/11/2014): Colonoscopy 05/2014 diverticulosis repeat in 10 years Restless leg syndrome 10/08/2013 Overview (08/06/2016): September 2013: Question possible RLS. Trial of mirapex. Jul 2016: doubled mirapex to 0.25mg at night. Erectile dysfunction 11/27/2010 Overview (09/13/2014): 2011: Viagra tried, and side effects of gastroesophogeal reflux disease Cialis, not needing 2015 so removing med. Hyperlipidemia associated with type 2 diabetes rudy dolan 01/17/2010 Overview (01/16/2022): November 2013: Atorvastatin (Lipitor) prescription sent, LDL was ok, but Triglycerides high. Chronic kidney disease 08/12/2009 Overview (01/16/2022): April 2018: Creatinine 1.35 and GFR 55. Gout, unspecified 08/12/2009 Overview (12/22/2017): July 2013: no gout symptoms, decreased allopurinol from 300 down to 100mg. December 2017: Uric acid ok at 5.7 off allopurinol, continue off allopurinol. Obstructive sleep apnea syndrome 10/25/2008 Overview (01/16/2022): Sleep study times 2 in 2008. As of Jan 2013, not using CPAP, doesn't tolerate mask. Tried several mask options and doesn't tolerate them. Type 2 diabetes mellitus wit h stage 2 chronic kidney disease, with long-term current use of insulin 10/14/2008 Overview (12/09/2021): Diagnosis 2009. Next eye exam 08/20. Mar 2012: changed to metformin ER Tabs due to diarrhea. Increase to 2000mg if no diarrhea at follow up. Jun 2012: A1c way up to over 12. 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 Januvia caused stomach pains so Patient stopped. Mar 2014: A1c over 14 but Patient probably not taking Glimepiride. Restart Glimepiride and added actos 30mg. Discussed bladder cancer risk with this. ~ Consider Byetta or Victoza? 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 ~ Metformin, needs Swdus brand. July 2013: Patient stopped metformin (still some diarrhea), A1c very good off metformin due to weight loss/exercise. Apr 2016: Stopped Victoza due to Gastrointestinal symptoms ( severe diarrhea). December 2017: added invokana and increased Pioglitazone (Actos) to 45, continue Glimepiride. May 2021: Starting insulin ( Patient did not start it) Patient stopped insluin and wants to try ozempic and jardiance before insluin. August 2021: Hemoglobin a1c still over 13. Increased Ozempic to 1mg / week. side effects with increased dose of Ozempic. November 2021: STarted lantus, 10 Units. Atrial fibrillation 10/14/2008 Overview (01/16/2022): Seen Cardiology 10/2008. Recommended to just stay on ASA unless with ventricular dysfunction, coumadin should be used. ECHO 10/2008: Mild left atrial enlargement otherwise normal. Patient on Coumadin 2009. Morbid obesity 09/29/2008 Snoring 09/29/2008 Hypertension 05/28/2001 Overview (01/16/2022): July 2013: blood pressure on low side with weight loss/exercise, so stopped hydrochlorothiazide/ Lisinopril combo med and go to just lisinopril only. History of deep venous thrombosis Resolved Problems Problem Noted Date Diagnosed Date Resolved Date History of claustrophobia 05/19/2024 Anticoagulation monitoring, INR range 2-3 10/18/2022 04/22/2024 Paroxysmal atrial fibrillation 02/21/2022 10/07/2023 Type 2 diabetes mellitus with hyperglycemia 01/16/2022 05/03/2023 COVID-19 virus infection 05/16/202007/2023 Overview (05/16/2020): Apr 2020 tested positive with hypoxia. Elevated liver enzymes 03/16/201404/24 Overview (03/16/2014): Mildly high in 2011. Mar 2014: ALT and AST 61/48 mildly high Deep vein thrombosis of left lower extremity 0 04/24/2016 Overview (04/07/2012): around 2009. Encounters Date Type Department Care Team Description 10/05/2024 Telephone [facility] [address] [facility] [place], [place] [id number] Raymond Handy, DO Refill Request (Dexcom G6 transmitter ) 10/05/2024 Telephone [facility] [address] [place] [address] Raymond Handy, DO Medication Management (/) 10/05/2024 Refill [facility] [address] [facility] [address] [place] [address] Raymond Handy DO Refill Request (Dexcom G6 Transmitter) 10/02/2024 Telephone [facility] [address] [facility] [address] [place] [id number] Elizabeth Brambila PA Cardiology Appointment 09/24/2024 3:50 PM CDT Office Visit [facility] [address] [place] [address] Bernabe Mathew MD Pre-Op Exam (DOS: 10/22/24, [facility], ) 09/24/2024 Travel from Last 3 Months Immunizations Immunization Administration Dates Next Due Hepatitis B (Adult) 06/14/2014,03/15/2014,2012 Influenza Virus, Unspecified 09/05/2021,03/27/20 16 Influenza, IIV3 (Age >=3 years) 04/13/2013,04/07 Influenza, IIV4 02/21/2022,,04/25/2020,2018,04/17/2018,02/22/2017,01/30/2016,1 ,03/15/2014 Pneumococcal Conj 20-valent (Prevnar 20) 02/21/2022 Pneumococcal Poly,23-Valent (Pneumovax) 01/19/2019 Td (Age >=7 Years) 01/19/2019 Tdap 09/29/2008 Zoster (Shingrix-RZV, recombinant) 04/24/2019, Family History Medical History Relation Name Comments Good Health Father Other Mother ulcer Relation Name Status Comments Father Alive Mother Social History Tobacco Use Types Packs/Day Years Used Date Smoking Tobacco: Never Smokeless Tobacco: Never Tobacco Cessation:Counseling Given: Yes Alcohol Use Standard Drinks/Week Comments No 0 (1 standard drink = 0.6 oz pur e alcohol) Alcoholic Drinks/day: 0 PHQ-2 Answer Date Recorded PHQ-2 TOTAL SCORE 1 10/14/2023 Social Connections Answer Date Recorded Do you often feel lonely or isolated from those around you? 0 07/23/2024 Financial Resource Strain Answer Date R ecorded Difficulty of Paying Living Expenses 3 07/23/2024 Difficulty of Paying Living Expenses Not on file 07/23/2024 Food Insecurity Answer Date Recorded Do you worry your food will run out before you are able to buy more? 1 07/23/2024 Transportation Needs Answer Date Record ed Does lack of transportation keep you from medica l appointments? 1 07/23/2024 Does lack of transportation keep you from work, meetings or getting things that you need? 1 07/23/2024 Housing Stability Answer Date Recorded What is your housing situation today? 1 07/23/2024 Interpersonal Safety Answer Date Record ed Are you being hit, kicked, p ushed or yelled at (see row info)? No 11/06/2023 Interpersonal Safety Abuse 12 - 18 Not on file 11/06/2023 Interpersonal Safety Ambulatory Vulnerability No t on file 11/06/2023 Utilities Answer Date Recorded Do you have trouble paying f or utilities (for example, heat, electricity, water, phone)? 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 Gender Identity Not on file Sexual Orientation Not on file Obstetrics History Last Filed Vital Signs Vital Sign Reading Time Taken Comments Blood Pressure 126/70 09/24/2024 3:27 PM CDT Pulse 84 09/24/2024 3:27 PM CDT Temperature 36.5 C (97.7 F) 09/24/2024 3:27 PM CDT Respiratory Rate 20 08/23/2011 12:0 8 PM CDT Oxygen Saturation 96% 11/11/2023 3:05 PM CDT Inhaled Oxygen Concentration - - Weight 153.6 kg (338 lb 11.2 oz) 09/24/2024 3:27 PM CDT Height 170.2 cm (5' 7) 09/24/2024 3:27 PM CDT Body Mass Index 53.05 09/24/2024 3:27 PM CDT Plan of Treatment Upcoming Encounters Date Type Department Care Team (Late st Contact Info) Description 01/11/2025 11:45 AM CDT Office Visit [facility] [address] [place] [address] Raymond Handy, DO [address] [facility] [address] [place] [address] Health Maintenance Due Date Last Done Comments RSV vaccine for adults or (1 - Risk 60-74 years 1-dose series) 2023 COVID-19 vaccine series (2023- season) 2024 Colonoscopy through age 75 05/11/2024 05/11/2014 Depression screening for age 12+ 10/13/2024 10/14/2023, 01/17/2023, 05/17/2021, Additional history exists Influenza Vaccine (#1) 2025 2, 09/05/2021, 06/08/2021, Additional history exists BMI (ht and wt on same day) for age 18+ 09/24/2025 09/24/2024, 07/23/2024, 11/11/2023, Additional history exists Tetanus booster 01/19/2029 01/19/2019, 09/29/2008 Lipids for age 45-75 07/23/2029 07/23/2024, 10/14/2023, 04/09/2023, Additional history exists Hepatitis C screening for ag e 18-79 Completed 04/10/2013, 08/12/2009 HIV for age 15-65 Completed 08/10/2013, 04/10/2013 Hepatitis B series for 19+ Completed 06/14, 03/15/2014, 01/12/2013 Zoster (shingles) series for age 50+ Completed 04/24/2019, 01/19/2019 Pneumococcal series for age 50+ Completed 2, 01/19/2019 Procedures Procedure Name Priority Date/Time Associated Diagnosis Comments BASIC METABOLIC PANEL Routine 09/24/2024 3:47 PM CDT Pre-op exam CBC WITH AUTO DIFFERENTIAL Routine 09/24/2024 3:47 PM CDT Pre-op exam LIPID PANEL Routine 07/23/2024 4:05 PM WEIGHT REDUCING TECHNICIAN Mixed hyperlipidemia ANTI HIV 1/2 Routine 08/10/2013 2:17 PM WEIGHT REDUCING TECHNICIAN Concern about STD in male without diagnosis ANTI HCV Routine 04/10/2013 7:27 AM CDT from Last 3 Months or Most Recently Relevant to Health Maintenance Results * CBC AND DIFFERENTIAL (09/24/2024 3:47 PM CDT) Pathologist [facility] WHITE BLOOD CELL COUNT 6.9 3.8 - 10.8 Thousand/u L [facility] RED BLOOD CELL COUNT 5.38 4.20 - 5.80 Million/uL [facility] HEMOGLOBIN 15.4 13.2 - 17.1 g/dL [facility] HEMATOCRIT 47.5 38.5 - 50.0 % [facility] MCV 88.3 80.0 - 100.0 fL [facility] MCH 28.6 27.0 - 33.0 pg [facility] MCHC 32.4 32.0 - 36.0 g/dL [facility] Comment: For adults, a slight decrease in the calculated MCHC value (in the range of 30 to 32 g/dL) is most likely not clinically significant; however, it should be interpreted with caution in correlation with other red cell parameters and the patient's clinical condition. RDW 13.9 11.0 - 15.0 % [facility] PLATELET COUNT 177 140 - 400 Thousand/u L [facility] MPV 11.9 7.5 - 12.5 fL [facility] ABSOLUTE NEUTROPHILS 4,658 1,500 - 7,800 cells/uL [facility] ABSOLUTE LYMPHOCYTES 1,497 850 - 3,900 cells/uL [facility] ABSOLUTE MONOCYTES 656 200 - 950 cells/uL [facility] ABSOLUTE EOSINOPHILS 48 15 - 500 cells/uL [facility] ABSOLUTE BASOPHILS 41 0 - 200 cells/uL [facility] NEUTROPHILS 67.5 % [facility] LYMPHOCYTES 21.7 % [facility] MONOCYTES 9.5 % [facility] EOSINOPHILS 0.7 % [facility] BASOPHILS 0.6 % [facility] Blood BLOOD SPECIMEN / Unknown 09/24/2024 3:47 PM CDT 09/24/2024 3:48 PM CDT Bernabe Mathew MD HEMATOLOGY Final Result [facility] [address] [place] [address], [facility] [address] [place] [address] * (ABNORMAL) BASIC METABOLIC PANEL (09/24/2024 3:47 PM CDT) [facility] GLUCOSE 210(H) 65 - 99 mg/dL [facility] Comment: Fasting reference interval For someone without known diabetes, a glucose value >125 mg/dL indicates that they may have diabetes and this should be confirmed with a follow-up test. UREA NITROGEN (BUN) 25 7 - 25 mg/dL [facility] CREATININE 1.32 0.70 - 1.35 mg/dL [facility] EGFR 62 > OR = 60 mL/min/1. 73m2 [facility] BUN/CREATININE RATIO SEE NOTE: 6 - 22 (calc) [facility] Comment: Not Reported: BUN and Creatinine are within reference range. SODIUM 139 135 - 146 mmol/L [facility] POTASSIUM 4.2 3.5 - 5.3 mmol/L [facility] CHLORIDE 103 98 - 110 mmol/L [facility] CARBON DIOXIDE 29 20 - 32 mmol/L [facility] ELECTROLYTE BALANCE 7 7 - 17 mmol/L (calc) [facility] CALCIUM 9.5 8.6 - 10.3 mg/dL [facility] Blood BLOOD SPECIMEN / Unknown 09/24/2024 3:47 PM CDT 09/24/2024 3:48 PM CDT Bernabe Mathew MD CHEMISTRY Final Result Performing Organization Address City/State/[facility] Co de Phone Number [facility] [address] [place] [address], [place] [phone] [facility] [address] [place] [address] * (ABNORMAL) LIPID PANEL (07/23/2024 4:05 PM WEIGHT REDUCING TECHNICIAN) [facility] Signature CHOLESTEROL, TOTAL 144 <200 mg/dL [facility] HDL CHOLESTEROL 33(L) > OR = 40 mg/dL [facility] TRIGLYCERIDES 242(H) <150 mg/dL [facility] Comment: If a non-fasting specimen was collected, consider repeat triglyceride testing on a fasting specimen if clinically indicated. Will et al. J. of Clin. Lipidol. 2015;9:129-169. LDL-CHOLESTEROL 77 mg/dL (calc) [facility] Comment: Reference range: <100 Desirable range <100 mg/dL for primary prevention; <70 mg/dL for patients with CHD or diabetic patients with > or = 2 CHD risk factors. LDL-C is now calculated using the Rocky-Pressley calculation, which is a validated novel method providing better accuracy than the Friedewald equation in the estimation of LDL-C. Rocky SS et al. GUS. 2013;310(19): 1204-6051 (http://education.[facility]/faq/TDQ103) CHOL/HDLC RATIO 4.4 <5.0 (calc) [facility] NON HDL CHOLESTEROL 111 <130 mg/dL (calc) [facility] Comment: For patients with diabetes plus 1 major ASCVD risk factor, treating to a non-HDL-C goal of <100 mg/dL (LDL-C of <70 mg/dL) is considered a therapeutic option. Blood BLOOD SPECIMEN / Unknown 07/23/2024 4:05 PM WEIGHT REDUCING TECHNICIAN 07/23/2024 4:05 PM WEIGHT REDUCING TECHNICIAN Bernabe Mathew MD CHEMISTRY Final Result [facility] [address] [place] [address], [facility] [address] [place] [address] * ANTI HIV 1/2 (08/10/2013 2:17 PM WEIGHT REDUCING TECHNICIAN) ANTI HIV 1/2 Non-reacti ve [facility] Blood specimen (specimen) BLOOD SPECIMEN / Unknown 08/10/2013 2:17 PM WEIGHT REDUCING TECHNICIAN 08/10/2013 2:09 PM WEIGHT REDUCING TECHNICIAN Amber Luna MD SEND OUTS Final Resul t [facility] [place] ZIP [address] [place] [phone] * ANTI HCV (04/10/2013 7:27 AM CDT) ANTI HCV Non-reacti ve [facility] Blood specimen (specimen) BLOOD SPECIMEN / Unknown 04/10/2013 7:27 AM CDT 04/10/2013 7:17 AM CDT Luis Beaulieu MD SEND OUTS Final Res ult [facility] [place]NAL ZIP [id number] [place] [phone] from Last 3 Months or Most Recently Relevant to Health Maintenance Insurance GREG TONY [id number] Care Teams Development Architect Relationship Specialty [place] [address] [place] [address] PCP - General Family Practice 05/10/23 Raymond Handy DO [address] [facility] [address] [place] [address] Endocrinology 06/28/22
[2024-12-16 20:23] VITALS: BP 141/72; PULSE 73; RESP 16; TEMP 36.1; O2SAT 95; BMI 49.6
--- NOTE | 2024-12-16 20:47 | ED_ITS ---
HPI - Wound/Laceration General Time Seen by Provider: 20:47 Date Seen: 12/16/24 Chief Complaint: Laceration/Wound Stated Complaint: leg injury, on blood thinners Time Seen by Provider: 12/16/24 20:46 Source: patient Mode of arrival: ambulatory History of Present Illness HPI narrative: Brain is a 59-year-old male with a past medical history of hypertension, hyperlipidemia, diabetes, atrial fibrillation, DVT on chronic anticoagulation with warfarin who presents to the emergency department for evaluation of a wound check. 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 Patient states that he caught himself however his right leg did hit a battery box. Patient states that initially he was seen at [facility], had x-rays done at this time. Patient reports that they said everything was okay and discharge him. Patient states that he has been keeping it clean, applying dressings last bandages, and states that it appears to be healing well and healing from the inside out. Patient wanted to get a wound check to make sure everything is healing well as he does not want to lose his leg or get infection. Patient states over all the wound is getting smaller, denies any swelling, no worsening pain, no redness. Patient reports occasionally clear bloody drainage but no purulent drainage. Patient denies any fever, chills, no other complaints. Patient denies any tobacco use. Related Data Home Medications ?Medication ?Instructions ?Recorded ?Confirmed atorvastatin 40 mg tablet mg 06/22/22 11/28/22 blood-glucose sensor (Dexcom G6 06/22/22 11/28/22 Sensor device) blood-glucose transmitter (Dexcom 06/22/22 11/28/22 G6 Transmitter device) empagliflozin 10 mg tablet mg 06/22/22 11/28/22 (Jardiance) escitalopram oxalate 20 mg tablet mg 06/22/22 11/28/22 gabapentin 100 mg capsule mg 06/22/22 11/28/22 glimepiride 4 mg tablet mg 06/22/22 11/28/22 insulin glargine 100 unit/mL (3 unit subcut 06/22/22 0 11/28/22 mL) subcutaneous pen (Lantus Solostar U-100 Insulin) lisinopril 20 mg tablet mg 06/22/22 11/28/22 metoprolol succinate 25 mg mg PO 06/22/22 11/28/22 tablet,extended release 24 hr pen needle, diabetic 32 gauge x 06/22/22 11/28/2206/13 (Unifine Pentips) pioglitazone 45 mg tablet mg 06/22/22 11/28/22 warfarin 5 mg tablet mg 06/22/22 11/28/22 Allergies Allergy/AdvReac Type Severity Reaction Status Date / Time No Known Drug Allergies Allergy Verified 11/28/22 16:38 Review of Systems Narrative: Past medical history, past surgical history, medications, allergies, family history, and social history were reviewed with the patient. No additional pertinent items. A medically appropriate review of systems was performed with pertinent positives and negatives noted in HPI, all other systems negative. [facility] Medical History DVT (deep venous thrombosis) ?I82.409 - Acute embolism and thrombosis of unspecified deep veins of unspecified lower extremity (ICD-10) BEVERLEY (obstructive sleep apnea) ?G47.33 - Obstructive sleep apnea (adult) (pediatric) (ICD-10) Hypertension ?I10 - Essential (primary) hypertension (ICD-10) Hyperlipidemia ?E78.5 - Hyperlipidemia, unspecified (ICD-10) Atrial fibrillation ?I48.91 - Unspecified atrial fibrillation (ICD-10) Diabetes ?E11.9 - Type 2 diabetes mellitus without complications (ICD-10) COVID-19 ?U07.1 - COVID-19 (ICD-10) Social History Smoking Status: Never smoker Do you use any of these nicotine containing products: None Second hand tobacco smoke exposure: No How often do you have a drink containing alcohol: never AUDIT-C Alcohol total score: 0 Non-prescribed substance use: denies use Exam Narrative: Exam Narrative: General: Afebrile, no acute distress HEENT: Normocephalic, atraumatic, conjunctiva normal. MMM Neck: non-tender, supple Cardio: regular rate. regular rhythm Resp: Normal work of breathing, no respiratory distress, lungs clear bilaterally, no wheezing, rhonchi, rales Chest/Back: no visual signs of trauma, no midline tenderness, no CVA tenderness Abdomen: soft, non distension, no tenderness, no peritoneal signs Neuro: alert and fully oriented. CN II-XII grossly intact. Grossly normal strength and sensation in all extremities. MSK: Right lower extremity with wound on mid-distal lateral aspect appears to be healing well with no area of swelling, no fluctuance, no significant erythema, no calf TTP, no lower extremity edema. No definitive evidence of cellulitis, abscess Integumentary/Skin: no rash visualized, normal color Psych: normal affect, normal behavior Const: Vital Signs, click to edit/add: Vital Signs - 24 hr 12/16/24 20:23 Temperature 97.0 F L Pulse Rate [Left P ulse Oximeter] 73 Respiratory Rate 16 Blood Pressure [Ri ght Upper Arm] 141/72 H Pulse Oximetry 95 Oxygen Delivery Me thod Room Air Course Course ED Course: Brain is a 59-year-old male with a past medical history of hypertension, hyperlipidemia, diabetes, atrial fibrillation, DVT on chronic anticoagulation with warfarin who presents to the emergency department for evaluation of a wound check. Upon arrival patient is nontoxic appearing, afebrile, no distress. Patient hemodynamically stable vital signs within normal limits. On examination wound appears to be healing well with no significant erythema, no swelling, no tenderness over his hare, no drainage. No clear evidence of infection. Consider antibiotics however this time will hold off, will have patient follow up in Wound Care Clinic in the next 48 hours for recheck, it continued wound care over the next few weeks until completely healed. Plan for discharge, wound care clinic or ED LEAD GENERATION SPECIALIST to call patient to schedule an appointment. Strict return precautions discussed. Patient understands and agrees with the plan. Vital Signs Vital signs: Initial Vital Signs Temperature 97.0 F L 12/16/24 20:23 Temperature Source Temporal Artery Scan 12/16/24 20:23 Pulse Rate 73 12/16/24 20:23 Pulse Rhythm Regular 12/16/24 20:23 Respiratory Rate 16 12/16/24 20:23 Blood Pressure 141/72 H 12/16/24 20:23 Blood Pressure Mean 95 12/16/24 20:23 Blood Pressure Position Sitting 12/16/24 20:23 Pulse Oximetry 95 12/16/24 20:23 Oxygen Delivery Method Room Air 12/16/24 20:23 Vital Signs Temperature 97.0 F L 12/16/24 20:23 Pulse Rate 73 12/16/24 20:23 Respiratory Rate 16 12/16/24 20:23 Blood Pressure 141/72 H 12/16/24 20:23 Pulse Oximetry 95 12/16/24 20:23 Oxygen Delivery Method Room Air 12/16/24 20:23 Temperature 97.0 F L 12/16/24 20:23 Pulse Rate 73 12/16/24 20:23 Respiratory Rate 16 12/16/24 20:23 Blood Pressure 141/72 H 12/16/24 20:23 Pulse Oximetry 95 12/16/24 20:23 Oxygen Delivery Method Room Air 12/16/24 20:23 Discharge Plan Discharge Clinical Impression: Visit for wound check Patient Disposition: Home, Self-Care Condition: Stable Additional Instructions: Please follow up in our wound care clinic in the next 2-3 days. Someone from the clinic should call you to schedule an appointment tomorrow. Please continue to keep wound clean and dry. Return to the emergency department if you develop high fever, severe pain, increased swelling, redness, drainage from the wound, or any worsening symptoms. It was a pleasure taking care of it today. Prescriptions: No Action atorvastatin 40 mg tablet Patient Comments: TAKE 1 TABLET (40 MG) BY MOUTH ONCE DAILY. FOR CHOLESTEROL (DME) Dexcom G6 Sensor Device MISCELLANEOUS Patient Comments: TO BE USED TO READ BLOOD SUGARS, FOLLOW DISTRIBUTION CENTER ADMINISTRATOR DIRECTIONS. (DME) Dexcom G6 Transmitter Device MISCELLANEOUS Patient Comments: TO BE USED TO READ BLOOD SUGARS, FOLLOW DISTRIBUTION CENTER ADMINISTRATOR DIRECTIONS. Jardiance 10 mg tablet Patient Comments: TAKE 1 TABLET (10 MG) BY MOUTH ONCE DAILY. FOR DIABETES. lisinopril 20 mg tablet Patient Comments: TAKE ONE TABLET BY MOUTH DAILY pioglitazone 45 mg tablet Patient Comments: TAKE ONE TABLET BY MOUTH ONCE DAILY FOR DIABETES glimepiride 4 mg tablet Patient Comments: TAKE TWO TABLETS BY MOUTH DAILY WITH A MEAL FOR DIABETES warfarin 5 mg tablet Patient Comments: TAKE BY MOUTH 7.5 MG (5 MG X 1.5) EVERY DAY OR DIRECTED gabapentin 100 mg capsule Patient Comments: TAKE THREE CAPSULES BY MOUTH DAILY AT NIGHT metoprolol succinate 25 mg tablet extended release 24 hr PO Patient Comments: TAKE ONE TABLET BY MOUTH DAILY FOR BLOOD PRESSURE escitalopram oxalate 20 mg tablet Patient Comments: TAKE ONE TABLET BY MOUTH EVERY MORNING insulin glargine [Lantus Solostar U-100 Insulin] 100 unit/mL (3 mL) insulin pen SUBCUT Patient Comments: INJECT 10 UNITS SUBCUTANEOUS BEFORE BEDTIME. (DME) pen needle, diabetic [Unifine Pentips] 32 gauge x 1/4 needle MISCELLANEOUS Patient Comments: FOR ADMINISTERING INSULIN AT HOME. Follow Up/Referrals: Provider,Not a Local [Primary Care Provider, Family Practice] Stand Alone Forms: [facility] Info Instructions
== END 2024-12-16 22:03 | disposition home or self-care (01) ==
PROVIDERS: Emergency Provider Emergency Medicine
DX: Z48.00 Encounter for change or removal of nonsurgical wound dressing (principal)
CPT/HCPCS: 99282; 99284

== ENCOUNTER 2024-12-21 08:26 | Outpatient (CLI) | payer OTHER, SELFPAY | END 2024-12-21 08:27 | disposition home or self-care (01) | LOC: WOUND 08:27 | PROVIDERS: PCP Family Medicine; Referring Provider Emergency Medicine; Visit Provider Family Medicine | DX: I87.311 Chronic venous hypertension (idiopathic) with ulcer of right lower extremity (principal); E11.622 Type 2 diabetes mellitus with other skin ulcer; L97.812 Non-pressure chronic ulcer of other part of right lower leg with fat layer exposed; Z79.4 Long term (current) use of insulin; Z79.84 Long term (current) use of oral hypoglycemic drugs; E66.01 Morbid (severe) obesity due to excess calories; Z68.42 Body mass index [BMI] 45.0-49.9, adult; Z79.01 Long term (current) use of anticoagulants | CPT/HCPCS: 11042; G0463 ==

== ENCOUNTER 2024-12-28 08:24 | Outpatient (CLI) | payer OTHER, SELFPAY | END 2024-12-28 08:25 | disposition home or self-care (01) | LOC: WOUND 08:24 | PROVIDERS: PCP Family Medicine; Visit Provider Physician Assistant | DX: I87.311 Chronic venous hypertension (idiopathic) with ulcer of right lower extremity (principal); E11.622 Type 2 diabetes mellitus with other skin ulcer; L97.812 Non-pressure chronic ulcer of other part of right lower leg with fat layer exposed; Z79.84 Long term (current) use of oral hypoglycemic drugs; Z79.4 Long term (current) use of insulin | CPT/HCPCS: 97597 ==

== ENCOUNTER 2025-01-05 08:05 | Outpatient (CLI) | payer OTHER, SELFPAY | END 2025-01-05 08:06 | disposition home or self-care (01) | LOC: WOUND 08:05 | PROVIDERS: PCP Family Medicine; Visit Provider Nurse Practitioner Family | DX: I87.311 Chronic venous hypertension (idiopathic) with ulcer of right lower extremity (principal); E11.622 Type 2 diabetes mellitus with other skin ulcer; L97.812 Non-pressure chronic ulcer of other part of right lower leg with fat layer exposed; Z79.01 Long term (current) use of anticoagulants; Z79.4 Long term (current) use of insulin; Z79.84 Long term (current) use of oral hypoglycemic drugs | CPT/HCPCS: 97597 ==

== ENCOUNTER 2025-01-11 08:31 | Outpatient (CLI) | payer OTHER, SELFPAY | END 2025-01-11 08:32 | disposition home or self-care (01) | PROVIDERS: PCP Family Medicine; Visit Provider Family Medicine | DX: I87.311 Chronic venous hypertension (idiopathic) with ulcer of right lower extremity (principal); E11.622 Type 2 diabetes mellitus with other skin ulcer; L97.812 Non-pressure chronic ulcer of other part of right lower leg with fat layer exposed; Z79.4 Long term (current) use of insulin; Z79.84 Long term (current) use of oral hypoglycemic drugs | CPT/HCPCS: 11042 ==

== ENCOUNTER 2025-01-17 16:35 | Emergency (ER) | payer OTHER, SELFPAY ==
--- OUTSIDE RECORDS SUMMARY | 2025-01-17 16:38 | XMS_ITS | Clinical Summary ---
Author Organization [facility] Address [address] [place] [id number] Care Team Providers Care Sales Development Associate Name Role Phone Raymond Handy DO Unavailable [phone] Bernabe Mathew MD Primary Care Provider Allergies Active Allergy Reactions Criticality Noted Date Comments Aspirin Other - Describe In Comment Field 04/21/2010 Using coumadin at this time Medications ACCU-CHEK ALPA PLUS TEST STRP stripIndications :Type 2 diabetes mellitus with chronic kidney disease (HC) USE TO TEST TWICE DAILY 200 Strip 3 020 Active Dexcom G6 Mrp Controller for continuous blood glucose monitor (CGM)Indications :Type 2 diabetes mellitus with stage 3a chronic kidney disease, without long-term current use of insulin (HC) To be used to read blood sugars follow landcare officer directions. 1 Each 023 Active glimepiride (AMARYL) 4 mg tabletIndication s:Type 2 diabetes mellitus with stage 2 chronic kidney disease, with long-term current use of insulin (HC) TAKE TWO TABLETS BY MOUTH DAILY WITH A MEAL FOR DIABETES 180 Tablet 3 024 Active pioglitazone (ACTOS) 45 mg tabletIndication s:Type 2 diabetes mellitus with stage 2 chronic kidney disease, with long-term current use of insulin (HC) TAKE ONE TABLET BY MOUTH ONCE DAILY FOR DIABETES 90 Tablet 3 024 Active lisinopriL (PRINIVIL; ZESTRIL) 20 mg tabletIndication s:Essential hypertension TAKE ONE TABLET BY MOUTH DAILY 90 Tablet 3 024 Active empagliflozin (Jardiance) 25 mg tabletIndication s:Type 2 diabetes mellitus with stage 2 chronic kidney disease, with long-term current use of insulin (HC) Take 1 Tablet (25 mg) by mouth once daily. 90 Tablet 3 024 Active escitalopram oxalate (LEXAPRO) 20 mg tabletIndication s:Anxiety Take 1 Tablet (20 mg) by mouth once daily in the morning. 90 Tablet 3 025 Active gabapentin (NEURONTIN) 300 mg capsuleIndicatio ns:Restless leg syndrome,Insomni a, idiopathic Take 1 Capsule (300 mg) by mouth at bedtime. 90 Capsule 025 Active metoprolol succinate (TOPROL XL) 25 mg Sustained-Releas e tabletIndication s:Essential hypertension Take 1 Tablet (25 mg) by mouth once daily. 90 Tablet 3 025 Active traZODone (DESYREL) 50 mg tabletIndication s:Insomnia, idiopathic Take 1 Tablet (50 mg) by mouth at bedtime if needed for Sleep. 90 Tablet 3 025 Active buPROPion (WELLBUTRIN XL) 150 mg Extended-Release tabletIndication s:Morbid obesity (HC) Take 1 Tablet (150 mg) by mouth once daily. 90 Tablet 3 025 Active Dexcom G6 Transmitter for continuous blood glucose monitor (CGM)Indications :Type 2 diabetes mellitus with stage 3a chronic kidney disease, without long-term current use of insulin (HC) TO BE USED TO READ BLOOD SUGARS, FOLLOW STEEL ERECTING PUSHER DIRECTIONS. 1 Each 025 Active naltrexone 50 mg tabletIndication s:Morbid obesity (HC) Take 1 Tablet (50 mg) by mouth once daily. 90 Tablet 3 025 Active Dexcom G6 Sensor for continuous blood glucose monitor (CGM)Indications :Type 2 diabetes mellitus with stage 2 chronic kidney disease, with long-term current use of insulin (HC) USE TO MONITOR BLOOD SUGARS DIRECTED 3 Each 025 Active pen needle (UltiCare Pen Needle) 32 gauge x 1/4 (disposable insulin pen needle)Indicatio ns:Type 2 diabetes mellitus with stage 3a chronic kidney disease, without long-term current use of insulin (HC) FOR ADMINISTERING INSULIN AT HOME TWICE DAILY. 200 Each 3 025 Active Lantus Solostar U-100 Insulin 100 unit/mL (3 mL) penIndications:T ype 2 diabetes mellitus with stage 2 chronic kidney disease, with long-term current use of insulin (HC) INJECT 25 UNITS IN THE MORNING AND 18 UNITS IN THE EVENING ABOUT 12 HOURS APART 60 mL 3 025 Active semaglutide (OZEMPIC) 1 mg/dose (4 mg/3 mL) subcutaneous penIndications:T ype 2 diabetes mellitus with stage 2 chronic kidney disease, with long-term current use of insulin (HC) Inject 1 mg subcutaneous once weekly. 3 Pen 3 025 Active atorvastatin (LIPITOR) 40 mg tabletIndication s:Hyperlipidemia associated with type 2 diabetes mellitus (HC) TAKE 1 TABLET (40 MG) BY MOUTH ONCE DAILY. FOR CHOLESTEROL 90 Tablet 3 025 Active warfarin (COUMADIN) 5 mg tabletIndication s:Paroxysmal atrial fibrillation (HC),Anticoagula tion monitoring, INR range 2-3,longterm current use of anticoagulant therapy TAKE 1 AND 1/2 TABLETS (7.5 MG) BY MOUTH EVERY DAY IN THE EVENING OR DIRECTED 137 Tablet 1 025 Active atorvastatin (LIPITOR) 40 mg tabletIndication s:Hyperlipidemia associated with type 2 diabetes mellitus (HC) Take 1 Tablet (40 mg) by mouth once daily. For cholesterol 90 Tablet 3 024 2024 Discontinued UltiCare Pen Needle 32 gauge x 1/4 (disposable insulin pen needle)Indicatio ns:Type 2 diabetes mellitus with stage 3a chronic kidney disease, without long-term current use of insulin (HC) FOR ADMINISTERING INSULIN AT HOME. 100 Each 3 024 2024 Discontinued(R eorder (E-cancel not sent)) warfarin (COUMADIN) 5 mg tabletIndication s:Paroxysmal atrial fibrillation (HC),Anticoagula tion monitoring, INR range 2-3,terminal supervisor current use of anticoagulant therapy TAKE 1 AND 1/2 TABLETS (7.5 MG) BY MOUTH EVERY DAY IN THE EVENING OR DIRECTED 137 Tablet 1 025 2024 Discontinued [employer] G6 Sensor for continuous blood glucose monitor (CGM)Indications :Type 2 diabetes mellitus with stage 2 chronic kidney disease, with long-term current use of insulin (HC) TO BE USED TO READ BLOOD SUGARS, FOLLOW STEEL ERECTING PUSHER DIRECTIONS. 3 Each 3 09/01/ 025 2024 Discontinued Lantus Solostar U-100 Insulin 100 unit/mL (3 mL) penIndications:T ype 2 diabetes mellitus with stage 2 chronic kidney disease, with long-term current use of insulin (HC) INJECT 18 UNITS TWICE DAILY ABOUT 12 HOURS APART 60 mL 3 025 2024 Discontinued(* Medication adjustment) semaglutide (OZEMPIC) 1 mg/dose (4 mg/3 mL) subcutaneous penIndications:T ype 2 diabetes mellitus with stage 2 chronic kidney disease, with long-term current use of insulin (HC) Inject 1 mg subcutaneous once weekly. 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 Type 2 diabetes mellitus wit h stage [...] Patient on Coumadin 2009. Morbid obesity 09/29/2008 Hypertension 05/28/2001 Overview (01/16/2022): July 2013: blood pressure on low side with weight loss/exercise, so stopped hydrochlorothiazide/ Lisinopril combo med and go to just lisinopril only. History of deep venous thrombosis Resolved Problems Problem Noted Date Diagnosed Date Resolved Date History of claustrophobia 05/19/2024 BMI 50.0-59.9, adult 02/20/2024 025 Anticoagulation monitoring, INR range 2-3 10/18/2022 04/22/2024 Paroxysmal atrial fibrillation 02/21/2022 10/07/2023 Diarrhea 01/16/2022 01/11/2025 Type 2 diabetes mellitus with hyperglycemia 01/16/2022 05/03/2023 COVID-19 virus infection 05/16/202007/2023 Overview (05/16/2020): Apr 2020 tested positive with hypoxia. Elevated liver enzymes 03/16/201404/24 Overview (03/16/2014): Mildly high in 2011. Mar 2014: ALT and AST 61/48 mildly high Deep vein thrombosis of left lower extremity 0 04/24/2016 Overview (04/07/2012): around 2009. Obstructive sleep apnea syndrome 10/25/2008 01/11/2025 Overview (01/16/2022): Sleep study times 2 in 2008. As of Jan 2013, not using CPAP, doesn't tolerate mask. Tried several mask options and doesn't tolerate them. Snoring 09/29/2008 01/11/2025 Encounters Date Type Department Care Team Description 01/12/2025 Refill [facility] [address] [place] [address] Bernabe Mathew MD Refill Request (Warfarin) 01/12/2025 Refill [facility] [address] [place] [address] AbiRaymond ignacio, DO Refill Request (Atorvastatin) 01/11/2025 11:45 AM CDT Office Visit [facility] [address] [facility] [address] [place] [address] AbiRaymodn ignacio, DO Diabetes (Diabetic Check) 01/11/2025 Travel 01/01/2025 Refill [facility] [address] [facility] [address] [place] [address] AbiRaymond ignacio, DO Refill Request (Dexcom G6 Sensor) from Last 3 Months Immunizations Immunization Administration [...] on file Legal Sex Male 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 SLIP OPERATOR Gender Identity Not on file Sexual Orientation Not on file Obstetrics History Last Filed Vital Signs Vital Sign Reading Time Taken Comments Blood Pressure 122/70 01/11/2025 11:39 AM CDT Pulse 64 01/11/2025 11:39 AM CDT Temperature 36.5 C (97.7 F) 09/24/2024 3:27 PM CDT Respiratory Rate 20 08/23/2011 12:08 PM CDT Oxygen Saturation 96% 11/11/2023 3:05 PM CDT Inhaled Oxygen Concentration - - Weight 149.7 kg (330 lb) 01/11/2025 11:39 AM CDT Height 170.2 cm (5' 7) 09/24/2024 3:27 PM CDT Body Mass Index 51.69 09/24/2024 3:27 PM CDT Plan of Treatment Upcoming Encounters Date Type Department Care Team (Late st Contact Info) Description 05/17/2025 12:10 PM SLIP OPERATOR Office Visit [facility] [address] [place] [address] Raymond Handy, [address] [place] [address] Health Maintenance Due Date Last Done Comments RSV vaccine for adults or (1 - Risk 60-74 years 1-dose series) 2023 COVID-19 vaccine series ( - 2023- season) 2024 Colonoscopy through age 75 05/11/2024 [...] Procedure Name Priority Date/Time Associated Diagnosis Comments HEMOGLOBIN A1C Routine 01/11/2025 12:04 PM CDT Type 2 diabetes mellitus with stage 2 chronic kidney disease, with long-term current use of insulin (HC) Morbid obesity (HC) LIPID PANEL Routine 07/23/2024 4:05 PM SLIP OPERATOR Mixed hyperlipidemia ANTI HIV 1/2 Routine 08/10/2013 2:17 PM SLIP OPERATOR Concern about STD in male without diagnosis ANTI HCV Routine 04/10/2013 7:27 AM CDT from Last 3 Months or Most Recently Relevant to Health Maintenance Results * (ABNORMAL) HEMOGLOBIN A1C [[id number]] (for locations that do not perform POCT) (01/11/2025 12:04 PM CDT) [facility] HEMOGLOBIN A1C 9.8(H) <5.7 % [employer] natalya Huber Comment: For someone without known diabetes, a hemoglobin A1c value of 6.5% or greater indicates that they may have diabetes and this should be confirmed with a follow-up test. For someone with known diabetes, a value <7% indicates that their diabetes is well controlled and a value greater than or equal to 7% indicates suboptimal control. A1c targets should be individualized based on duration of diabetes, age, comorbid conditions, and other considerations. Currently, no consensus exists regarding use of hemoglobin A1c for diagnosis of diabetes for children. Blood BLOOD SPECIMEN / Unknown 01/11/2025 12:04 PM CDT 01/11/2025 12:08 PM CDT us Irfaan Ahmed Abid DO CHEMISTRY Final Resul t [facility] [address] [place] [address], [facility] [address] [place] [address] * (ABNORMAL) LIPID PANEL (07/23/2024 4:05 PM SLIP OPERATOR) [facility] CHOLESTEROL, TOTAL 144 <200 mg/dL [employer] natalya Huber HDL CHOLESTEROL 33(L) > OR = 40 mg/dL [employer]er TRIGLYCERIDES 242(H) <150 mg/dL [employer] natalya Huber Comment: If a non-fasting specimen was collected, consider repeat triglyceride testing on a fasting specimen if clinically indicated. Will et al. J. of Clin. Lipidol. 2015;9:129-169. LDL-CHOLESTEROL 77 mg/dL (calc) [employer] natalya Huber Comment: Reference range: <100 Desirable range <100 mg/dL for primary prevention; <70 mg/dL for patients with CHD or diabetic patients with > or = 2 CHD risk factors. LDL-C is now calculated using the Annabella calculation, which is a validated novel method providing better accuracy than the Friedewald equation in the estimation of LDL-C. Rocky LOVE et al. GUS. 2013;310(19): 4982-5676 (http://education.achvr/faq/WHX419) CHOL/HDLC RATIO 4.4 <5.0 (calc) [facility] NON HDL CHOLESTEROL 111 <130 mg/dL (calc) [facility] Comment: For patients with diabetes plus 1 major ASCVD risk factor, treating to a non-HDL-C goal of <100 mg/dL (LDL-C of <70 mg/dL) is considered a therapeutic option. Blood BLOOD SPECIMEN / Unknown 07/23/2024 4:05 PM SLIP OPERATOR 07/23/2024 4:05 PM SLIP OPERATOR Bernabe Mathew MD CHEMISTRY Final Result [facility] [address] [place] [address], [facility] [address] [place] [address] * ANTI HIV 1/2 (08/10/2013 2:17 PM SLIP OPERATOR) ANTI HIV 1/2 Non-reacti ve [facility] Blood specimen (specimen) BLOOD SPECIMEN / Unknown 08/10/2013 2:17 PM SLIP OPERATOR 08/10/2013 2:09 PM SLIP OPERATOR Amber Luna MD SEND OUTS Final Resul t [facility] INTERNAL ZIP [id number] [place] [id number] * ANTI HCV (04/10/2013 7:27 AM CDT) Pathologist [facility] ANTI HCV Non-reacti [facility] Blood specimen (specimen) BLOOD SPECIMEN / Unknown 04/10/2013 7:27 AM CDT 04/10/2013 7:17 AM CDT us Luis Beaulieu MD SEND OUTS Final Res ult [facility] INTERNAL ZIP [id number] [place] [id number] from Last 3 Months or Most Recently Relevant to Health Maintenance Insurance Care Teams Sales Development Associate Relationship Specialty [place] [address] [place] [address] PCP - General Family Practice 05/10/23 Raymond Handy DO [address] [facility] [address] [place] [address] Endocrinology 06/28/22
--- OUTSIDE RECORDS SUMMARY | 2025-01-17 16:38 | XMS_ITS | Clinical Summary ---
Author Organization [facility] Address [address] [place] [address] Care Team Providers Care Hide And Skin Fleshing Machine Operator Name Role Phone Unassigned, Provider Primary Care Provider Unava ilable Source Comments You are receiving this document as you are listed as the primary care provider,follow-up provider, or the patient has been referred to you for consultation.This is in compliance with the Medicare and[facility] EHR Incentive Program,which states Providers who transition their patient to another setting of careor provider of care or refers their patient to another provider of care shouldprovide summary care record for each transition of care or referral. [facility] Allergies No known active allergies Medications atorvastatin (LIPITOR) 40 MG tablet Take 1 Tablet (40 mg) by mouth daily. 04/07/20 Active INVOKANA 100 MG tablet Take 1 [...] Description 11/28/2024 11:40 AM CDT Ancillary Procedure [facility] [address] [place] [phone] Robbi Araujo PA-C Hematoma of right lower leg 11/28/2024 11:20 AM CDT Office Visit [facility] [id number] [place] [id number] Robbi Araujo PA-C Hematoma of right lower [...] Months Insurance [employer] Care Teams Hide And Skin Fleshing Machine Operator Relationship Specialty Start Date End Date Unassigned, Provider [address] [place] [address] PCP - General 08/11/00
[2025-01-17 16:39] VITALS: BP 100/65; PULSE 65; RESP 18; TEMP 36.6; O2SAT 95; BMI 50.2
--- NOTE | 2025-01-17 16:57 | ED.WOUNDLAC ---
HPI - Wound/Laceration General Time Seen by Provider: 16:57 Date Seen: 01/17/25 Chief Complaint: Laceration/Wound Stated Complaint: wound R leg Time Seen by Provider: 01/17/25 16:56 Source: patient, RN notes reviewed and old records reviewed Mode of arrival: ambulatory Limitations: no limitations History of Present Illness HPI narrative: Hemant is a 59-year-old male with a past medical history of hypertension, hyperlipidemia, diabetes, atrial fibrillation, DVT on chronic anticoagulation with warfarin who comes to the ER for a wound check. Notes that [facility] and his next appointment is tomorrow morning. He is not currently on antibiotics. He notes continued drainage from 2 separate wounds on his right lower leg. His girlfriend who checks his wounds thought perhaps there is a little more redness today and they also spoke to 2 RNs that they know of and both thought that he should be checked out today. Wound drainage is not any more than it has been after some debridement had been done last week. He denies fever chills vomiting. He has not had any redness extending up onto his leg. He feels that the wounds are actually improving. Related Data Home Medications ?Medication ?Instructions ?Recorded ?Confirmed atorvastatin 40 mg tablet mg 06/22/22 11/28/22 blood-glucose sensor (Dexcom G6 06/22/22 11/28/22 Sensor device) blood-glucose transmitter (Dexcom 06/22/22 11/28/22 G6 Transmitter device) empagliflozin 10 mg tablet mg 06/22/22 11/28/22 (Jardiance) escitalopram oxalate 20 mg tablet mg 06/22/22 11/28/22 gabapentin 100 mg capsule mg 06/22/22 11/28/22 glimepiride 4 mg tablet mg 06/22/22 11/28/22 insulin glargine 100 unit/mL (3 unit subcut 06/22/22 11/28/22 mL) subcutaneous pen (Lantus Solostar U-100 Insulin) lisinopril 20 mg tablet mg 06/22/22 11/28/22 metoprolol succinate 25 mg mg PO 06/22/22 11/28/22 tablet,extended release 24 hr pen needle, diabetic 32 gauge x 06/22/22 11/28/2206/13 (Unifine Pentips) pioglitazone 45 mg tablet mg 06/22/22 11/28/22 warfarin 5 mg tablet mg 06/22/22 11/28/22 Allergies Allergy/AdvReac Type Severity Reaction Status Date / Time No Known Drug Allergies Allergy Verified 01/17/25 16:44 Review of Systems Status of ROS: Reports: 6 or more systems reviewed and unremarkable except as noted in History and below Const: Denies: fever or chills Integ/Breast: Reports: redness; Denies: itching, skin pain or new lesion [facility] Medical History DVT (deep venous thrombosis) ?I82.409 - Acute embolism and thrombosis of unspecified deep veins of unspecified lower extremity (ICD-10) BEVERLEY (obstructive sleep apnea) ?G47.33 - Obstructive sleep apnea (adult) (pediatric) (ICD-10) Hypertension ?I10 - Essential (primary) hypertension (ICD-10) Hyperlipidemia ?E78.5 - Hyperlipidemia, unspecified (ICD-10) Atrial fibrillation ?I48.91 - Unspecified atrial fibrillation (ICD-10) Diabetes ?E11.9 - Type 2 diabetes mellitus without complications (ICD-10) COVID-19 ?U07.1 - COVID-19 (ICD-10) Social History Smoking Status: Never smoker Do you use any of these nicotine containing products: None Second hand tobacco smoke exposure: No How often do you have a drink containing alcohol: never AUDIT-C Alcohol total score: 0 Non-prescribed substance use: denies use Exam Narrative: Exam Narrative: No acute distress. Examination of the 2 wounds on right lower leg show them to be draining a serous drainage. Mild induration surrounding both of these wounds but no warmth to the touch or excessive redness. Const: Vital Signs, click to edit/add: Vital Signs - 24 hr 01/17/25 16:39 Temperature 98 F Pulse Rate [Right Pulse Oximeter] 65 Respiratory Rate 18 Blood Pressure [Ri ght Upper Arm] 100/65 Pulse Oximetry 95 Oxygen Delivery Me thod Room Air Documenting provider has reviewed patient's vital signs: yes Course Vital Signs Vital signs: Initial Vital Signs Temperature 98 F 01/17/25 16:39 Temperature Source Temporal Artery Scan 01/17/25 16:39 Pulse Rate 65 01/17/25 16:39 Pulse Rhythm Regular 01/17/25 16:39 Pulse Strength 3+ Normal 01/17/25 16:39 Respiratory Rate 18 01/17/25 16:39 Blood Pressure 100/65 01/17/25 16:39 Blood Pressure Mean 76 01/17/25 16:39 Blood Pressure Position Sitting 01/17/25 16:39 Pulse Oximetry 95 01/17/25 16:39 Oxygen Delivery Method Room Air 01/17/25 16:39 Vital Signs Temperature 98 F 01/17/25 16:39 Pulse Rate 65 01/17/25 16:39 Respiratory Rate 18 01/17/25 16:39 Blood Pressure 100/65 01/17/25 16:39 Pulse Oximetry 95 01/17/25 16:39 Oxygen Delivery Method Room Air 01/17/25 16:39 Temperature 98 F 01/17/25 16:39 Pulse Rate 65 01/17/25 16:39 Respiratory Rate 18 01/17/25 16:39 Blood Pressure 100/65 01/17/25 16:39 Pulse Oximetry 95 01/17/25 16:39 Oxygen Delivery Method Room Air 01/17/25 16:39 MDM - Wound/Laceration MDM Narrative Medical decision making narrative: 1. Wound recheck-at this time I do not recommend antibiotics as I think what we are seeing is normal wound healing. However, should patient have fever chills vomiting red streaks running up his leg I would like to see him in the ER immediately. Otherwise he can await his appointment tomorrow morning at the wound care clinic. 2. Disposition-home at this time. Return as indicated. Will replace his current dressings. Medical Records Attestation: I reviewed the patient's medical records. Discharge Plan Discharge Prescriptions: No Action atorvastatin 40 mg tablet Patient Comments: TAKE 1 TABLET (40 MG) BY MOUTH ONCE DAILY. FOR CHOLESTEROL (DME) Dexcom G6 Sensor Device MISCELLANEOUS Patient Comments: TO BE USED TO READ BLOOD SUGARS, FOLLOW [employer]PER[employer]OR [employer] DIRECTIONS. (DME) Dexcom G6 Transmitter Device MISCELLANEOUS Patient Comments: TO BE USED TO READ BLOOD SUGARS, FOLLOW [employer] DIRECTIONS. Jardiance 10 mg tablet Patient Comments: TAKE 1 TABLET (10 MG) BY MOUTH ONCE DAILY. FOR DIABETES. lisinopril 20 mg tablet Patient Comments: TAKE ONE TABLET BY MOUTH DAILY pioglitazone 45 mg tablet Patient Comments: TAKE ONE TABLET BY MOUTH ONCE DAILY FOR DIABETES glimepiride 4 mg tablet Patient Comments: TAKE TWO TABLETS BY MOUTH DAILY WITH A MEAL FOR DIABETES warfarin 5 mg tablet Patient Comments: TAKE BY MOUTH 7.5 MG (5 MG X 1.5) EVERY DAY OR DIRECTED gabapentin 100 mg capsule Patient Comments: TAKE THREE CAPSULES BY MOUTH DAILY AT NIGHT metoprolol succinate 25 mg tablet extended release 24 hr PO Patient Comments: TAKE ONE TABLET BY MOUTH DAILY FOR BLOOD PRESSURE escitalopram oxalate 20 mg tablet Patient Comments: TAKE ONE TABLET BY MOUTH EVERY MORNING insulin glargine [Lantus Solostar U-100 Insulin] 100 unit/mL (3 mL) insulin pen SUBCUT Patient Comments: INJECT 10 UNITS SUBCUTANEOUS BEFORE BEDTIME. (DME) pen needle, diabetic [Unifine Pentips] 32 gauge x 1/4 needle MISCELLANEOUS Patient Comments: FOR ADMINISTERING INSULIN AT HOME. Follow Up/Referrals: Bernabe Mathew MD [Primary Care Provider, Family Practice]
== END 2025-01-17 17:30 | disposition home or self-care (01) ==
LOC: ED 17:11
PROVIDERS: Emergency Provider Family Medicine; PCP Family Medicine
DX: S81.801A Unspecified open wound, right lower leg, initial encounter (principal)
CPT/HCPCS: 99283

== ENCOUNTER 2025-01-18 08:34 | Outpatient (CLI) | payer OTHER, SELFPAY | END 2025-01-18 08:35 | disposition home or self-care (01) | LOC: WOUND 08:35 | PROVIDERS: PCP Family Medicine; Visit Provider Family Medicine | DX: I87.311 Chronic venous hypertension (idiopathic) with ulcer of right lower extremity (principal); E11.622 Type 2 diabetes mellitus with other skin ulcer; L97.812 Non-pressure chronic ulcer of other part of right lower leg with fat layer exposed; Z79.4 Long term (current) use of insulin; Z79.01 Long term (current) use of anticoagulants | CPT/HCPCS: 11042 ==

== ENCOUNTER 2025-01-20 08:46 | Outpatient (CLI) | payer OTHER, SELFPAY ==
[2025-01-20 09:53] LABS: Hematocrit 47.3 % (37.0-53.0); Hemoglobin* 15.2 gm/dL (13.5-17.5); Immature Granulocytes Abs Auto 0.02 K/uL (0.00-0.30); Immature Granulocytes Pct Auto 0.3 %; Mean Corpuscular HGB Conc 32 gm/dL (32-36); Mean Corpuscular Hemoglobin 29 pg (26-34); Mean Corpuscular Volume 90 fL (80-100); RDW Coefficient of Variation % 13.8 % (11.5-15.5); Red Blood Count 5.27 m/uL (4.30-5.90); White Blood Count* 7.63 K/uL (4.50-11.00)
[2025-01-20 09:56] LABS: Lymphocytes Absolute Auto 1.00 K/uL (0.90-2.90); Slide Review Reflex No
== END 2025-01-20 08:47 | disposition home or self-care (01) ==
LOC: WOUND 08:46
PROVIDERS: PCP Family Medicine; Visit Provider Nurse Practitioner Family
DX: I87.311 Chronic venous hypertension (idiopathic) with ulcer of right lower extremity (principal); E11.622 Type 2 diabetes mellitus with other skin ulcer; L97.812 Non-pressure chronic ulcer of other part of right lower leg with fat layer exposed; Z79.01 Long term (current) use of anticoagulants; Z79.4 Long term (current) use of insulin
CPT/HCPCS: 36415; 85025; 86140; G0463

== ENCOUNTER 2025-01-25 08:31 | Outpatient (CLI) | payer OTHER, SELFPAY | END 2025-01-25 08:32 | disposition home or self-care (01) | LOC: WOUND 08:31 | PROVIDERS: PCP Family Medicine; Visit Provider Physician Assistant | DX: I87.311 Chronic venous hypertension (idiopathic) with ulcer of right lower extremity (principal); E11.622 Type 2 diabetes mellitus with other skin ulcer; L97.812 Non-pressure chronic ulcer of other part of right lower leg with fat layer exposed; Z79.01 Long term (current) use of anticoagulants; Z79.4 Long term (current) use of insulin; Z79.84 Long term (current) use of oral hypoglycemic drugs | CPT/HCPCS: 97597 ==

== ENCOUNTER 2025-02-03 10:03 | Outpatient (CLI) | payer OTHER, SELFPAY | END 2025-02-03 10:04 | disposition home or self-care (01) | LOC: WOUND 10:03 | PROVIDERS: PCP Family Medicine; Visit Provider Nurse Practitioner Family | DX: I87.311 Chronic venous hypertension (idiopathic) with ulcer of right lower extremity (principal); E11.622 Type 2 diabetes mellitus with other skin ulcer; L97.812 Non-pressure chronic ulcer of other part of right lower leg with fat layer exposed; Z79.4 Long term (current) use of insulin; Z79.01 Long term (current) use of anticoagulants | CPT/HCPCS: 11042 ==

== ENCOUNTER 2025-02-11 07:53 | Outpatient (CLI) | payer OTHER, SELFPAY | END 2025-02-11 07:54 | disposition home or self-care (01) | LOC: WOUND 07:54 | PROVIDERS: PCP Family Medicine; Visit Provider Nurse Practitioner Family | DX: I87.311 Chronic venous hypertension (idiopathic) with ulcer of right lower extremity (principal); L97.812 Non-pressure chronic ulcer of other part of right lower leg with fat layer exposed; Z79.4 Long term (current) use of insulin; Z79.84 Long term (current) use of oral hypoglycemic drugs; E66.01 Morbid (severe) obesity due to excess calories; Z68.42 Body mass index [BMI] 45.0-49.9, adult; Z79.01 Long term (current) use of anticoagulants | CPT/HCPCS: 11042 ==

== ENCOUNTER 2025-02-15 08:31 | Outpatient (CLI) | payer OTHER, SELFPAY | END 2025-02-15 08:32 | disposition home or self-care (01) | LOC: WOUND 08:31 | PROVIDERS: PCP Family Medicine; Visit Provider Family Medicine | DX: I87.311 Chronic venous hypertension (idiopathic) with ulcer of right lower extremity (principal); E11.622 Type 2 diabetes mellitus with other skin ulcer; L97.812 Non-pressure chronic ulcer of other part of right lower leg with fat layer exposed; E66.01 Morbid (severe) obesity due to excess calories; Z68.42 Body mass index [BMI] 45.0-49.9, adult; Z79.84 Long term (current) use of oral hypoglycemic drugs; Z79.01 Long term (current) use of anticoagulants; Z79.4 Long term (current) use of insulin | CPT/HCPCS: 11042 ==

== ENCOUNTER 2025-02-22 10:00 | Outpatient (CLI) | payer OTHER, SELFPAY | END 2025-02-22 10:01 | disposition home or self-care (01) | LOC: WOUND 10:02 | PROVIDERS: PCP Family Medicine; Visit Provider Family Medicine | DX: I87.311 Chronic venous hypertension (idiopathic) with ulcer of right lower extremity (principal); E11.622 Type 2 diabetes mellitus with other skin ulcer; L97.812 Non-pressure chronic ulcer of other part of right lower leg with fat layer exposed; Z79.01 Long term (current) use of anticoagulants; Z79.4 Long term (current) use of insulin; Z79.84 Long term (current) use of oral hypoglycemic drugs | CPT/HCPCS: 11042 ==

== ENCOUNTER 2025-03-01 08:26 | Outpatient (CLI) | payer OTHER, SELFPAY | END 2025-03-01 08:27 | disposition home or self-care (01) | LOC: WOUND 08:26 | PROVIDERS: PCP Family Medicine; Visit Provider Family Medicine | DX: I87.311 Chronic venous hypertension (idiopathic) with ulcer of right lower extremity (principal); E11.622 Type 2 diabetes mellitus with other skin ulcer; L97.812 Non-pressure chronic ulcer of other part of right lower leg with fat layer exposed; Z79.01 Long term (current) use of anticoagulants; Z79.4 Long term (current) use of insulin | CPT/HCPCS: 11042 ==

== ENCOUNTER 2025-03-08 08:35 | Outpatient (CLI) | payer OTHER, SELFPAY | END 2025-03-08 08:36 | disposition home or self-care (01) | LOC: WOUND 08:36 | PROVIDERS: PCP Family Medicine; Visit Provider Nurse Practitioner Family | DX: I87.311 Chronic venous hypertension (idiopathic) with ulcer of right lower extremity (principal); E11.622 Type 2 diabetes mellitus with other skin ulcer; L97.812 Non-pressure chronic ulcer of other part of right lower leg with fat layer exposed; Z79.01 Long term (current) use of anticoagulants; Z79.4 Long term (current) use of insulin; Z79.84 Long term (current) use of oral hypoglycemic drugs | CPT/HCPCS: 11042 ==

== ENCOUNTER 2025-03-16 14:50 | Outpatient (CLI) | payer OTHER, SELFPAY | END 2025-03-16 14:51 | disposition home or self-care (01) | LOC: WOUND 14:51 | PROVIDERS: PCP Family Medicine; Visit Provider Nurse Practitioner Family | DX: I87.311 Chronic venous hypertension (idiopathic) with ulcer of right lower extremity (principal); E11.622 Type 2 diabetes mellitus with other skin ulcer; L97.812 Non-pressure chronic ulcer of other part of right lower leg with fat layer exposed; Z79.01 Long term (current) use of anticoagulants; Z79.4 Long term (current) use of insulin; Z79.84 Long term (current) use of oral hypoglycemic drugs | CPT/HCPCS: 11042 ==

== ENCOUNTER 2025-03-22 08:31 | Outpatient (CLI) | payer OTHER, SELFPAY | END 2025-03-22 08:32 | disposition home or self-care (01) | LOC: WOUND 08:32 | PROVIDERS: PCP Family Medicine; Visit Provider Family Medicine | DX: I87.311 Chronic venous hypertension (idiopathic) with ulcer of right lower extremity (principal); E11.622 Type 2 diabetes mellitus with other skin ulcer; L97.812 Non-pressure chronic ulcer of other part of right lower leg with fat layer exposed; Z79.01 Long term (current) use of anticoagulants; Z79.4 Long term (current) use of insulin; Z79.84 Long term (current) use of oral hypoglycemic drugs | CPT/HCPCS: 97597 ==

== ENCOUNTER 2025-04-09 08:22 | Outpatient (CLI) | payer OTHER, SELFPAY | END 2025-04-09 08:23 | disposition home or self-care (01) | LOC: WOUND 08:22 | PROVIDERS: PCP Family Medicine; Visit Provider Nurse Practitioner Family | DX: Z09 Encounter for follow-up examination after completed treatment for conditions other than malignant neoplasm (principal); Z87.2 Personal history of diseases of the skin and subcutaneous tissue | CPT/HCPCS: G0463 ==